=== PATIENT | male | born 1945 | race Caucasian/White ===

== ENCOUNTER → 2016-08-17 | Outpatient (CLI) | payer OTHER, BC ==
[2016-03-06 08:32] VITALS: BP 173/92
[2016-08-17 09:39] LABS: ALANINE AMINOTRANSFERASE 27 Units/L (12-78); ALBUMIN 3.3 g/dL (3.4-5.0); ALKALINE PHOSPHATASE 116 Units/L (46-116); ASPARTATE AMINO TRANSFERASE 20 Units/L (15-37); BLOOD UREA NITROGEN 12 mg/dL (7-18); CARBON DIOXIDE 30.9 mmol/L (21-32); CHLORIDE 105 mmol/L (98-107); COR CA(FOR HYPOALB) 9.6 mg/dL (8.5-10.1); CREATININE 1.27 mg/dL (0.70-1.30); GLUCOSE 104 mg/dL (65-99); SODIUM 142 mmol/L (136-145); eGFR BLACK RACES > 60 (>60); eGFR NON BLACK RACES 59 (>60)
[2016-08-17 10:30] LABS: BASOPHILS % (AUTO) 0.8 % (0.2-1.0); EOSINOPHILS # (AUTO) 0.1 x10^3/uL (0.0-0.2); EOSINOPHILS % (AUTO) 2.4 % (0.9-2.9); LYMPHOCYTES # (AUTO) 1.8 X10^3/uL (1.3-2.9); LYMPHOCYTES % (AUTO) 28.9 % (21.0-51.0); MEAN CORPUSCULAR HEMOGLOBIN 27.2 pg (27.0-34.0); MEAN CORPUSCULAR HGB CONC 32.6 g/dL (33.0-35.0); MEAN CORPUSCULAR VOLUME 83.4 fL (80.0-100.0); MEAN PLATELET VOLUME 7.5 fL (7.4-11.0); MONOCYTES # (AUTO) 0.7 x10^3/uL (0.3-0.8); MONOCYTES % (AUTO) 10.9 % (0.0-13.0); NEUTROPHILS # (AUTO) 3.6 x10^3/uL (2.2-4.8); PLATELET COUNT 219 X10^3/uL (150.0-450.0); RED BLOOD COUNT 5.15 X10^6/uL (4.7-6.0); WHITE BLOOD COUNT 6.3 X10^3/uL (3.6-10.0)
== END ==
LOC: LAB 08:53
PROVIDERS: ATTEND Internal Medicine Medical Oncology
DX: Z01.812 Encounter for preprocedural laboratory examination (principal); C49.9 Malignant neoplasm of connective and soft tissue, unspecified
CPT/HCPCS: 36415; 80053; 85025

== ENCOUNTER → 2016-09-11 | Outpatient (CLI) | payer OTHER, BC ==
[2016-03-06 08:32] VITALS: BP 173/92
[2016-09-11 08:14] LABS: ALANINE AMINOTRANSFERASE 29 Units/L (12-78); ALBUMIN 3.7 g/dL (3.4-5.0); ALKALINE PHOSPHATASE 123 Units/L (46-116); ASPARTATE AMINO TRANSFERASE 26 Units/L (15-37); BLOOD UREA NITROGEN 25 mg/dL (7-18); CALCIUM 9.3 mg/dL (8.5-10.1); CARBON DIOXIDE 29.1 mmol/L (21-32); CHLORIDE 103 mmol/L (98-107); CREATININE 1.54 mg/dL (0.70-1.30); GLUCOSE 102 mg/dL (65-99); HEMOGLOBIN A1C 5.8 % (4.5-6.2); SODIUM 140 mmol/L (136-145); TOTAL PROTEIN 7.9 g/dL (6.4-8.2); eGFR BLACK RACES 57 (>60); eGFR NON BLACK RACES 47 (>60)
[2016-09-11 08:25] LABS: PREALBUMIN 25.3 mg/dL (18-35.7)
== END ==
LOC: LAB 07:21
PROVIDERS: ATTEND Orthopaedic Surgery
DX: M25.562 Pain in left knee (principal); M17.12 Unilateral primary osteoarthritis, left knee; R73.09 Other abnormal glucose
CPT/HCPCS: 36415; 80053; 83036; 84134; 85652; 86140

== ENCOUNTER → 2016-11-02 | Outpatient (CLI) | payer OTHER, BC ==
[2016-03-06 08:32] VITALS: BP 173/92
[2016-11-02 09:03] LABS: BASOPHILS # (AUTO) 0.1 X10^3/uL (0.0-0.1); BASOPHILS % (AUTO) 1.1 % (0.2-1.0); EOSINOPHILS # (AUTO) 0.3 x10^3/uL (0.0-0.2); EOSINOPHILS % (AUTO) 2.4 % (0.9-2.9); HEMATOCRIT 32.3 % (42.0-54.0); HEMOGLOBIN 10.8 g/dL (13.5-18.0); LYMPHOCYTES # (AUTO) 2.6 X10^3/uL (1.3-2.9); LYMPHOCYTES % (AUTO) 24.3 % (21.0-51.0); MEAN CORPUSCULAR HGB CONC 33.5 g/dL (33.0-35.0); MEAN CORPUSCULAR VOLUME 89.6 fL (80.0-100.0); MEAN PLATELET VOLUME 7.7 fL (7.4-11.0); MONOCYTES % (AUTO) 9.2 % (0.0-13.0); NEUTROPHILS # (AUTO) 6.7 x10^3/uL (2.2-4.8); PLATELET COUNT 235 X10^3/uL (150.0-450.0); RED BLOOD COUNT 3.61 X10^6/uL (4.7-6.0); RED CELL DISTRIBUTION WIDTH 16.2 % (11.6-16.5); WHITE BLOOD COUNT 10.7 X10^3/uL (3.6-10.0)
== END ==
LOC: LAB 08:34
PROVIDERS: ATTEND Orthopaedic Surgery
DX: M25.562 Pain in left knee (principal); M17.12 Unilateral primary osteoarthritis, left knee; M89.8X6 Other specified disorders of bone, lower leg
CPT/HCPCS: 36415; 85025

== ENCOUNTER 2017-08-05 06:36 | Day surgery (SDC) | payer OTHER, BC ==
[2017-08-05] MEDS ORDERED: NS 500 ML IV 500 ML IV ONE (07:04)
[2017-08-05] MEDS ORDERED: TETRACAINE 0.5% OPHTH 1 DOSE AFFEYE ONE ×7 (07:30→10:23)
[2017-08-05] MEDS ORDERED: VIGAMOX 0.5% OPHTH 1 DOSE AFFEYE ONE ×3 (07:35→07:45)
[2017-08-05] MEDS ORDERED: VERSED ONE (07:38)
[2017-08-05] MEDS ORDERED: PROLENSA OPHTH 1 DOSE AFFEYE ONE (07:46)
[2017-08-05] MEDS ORDERED: ALPHAGAN-P OPHTH 1 DOSE AFFEYE ONE (07:47)
[2017-08-05] MEDS ORDERED: AK-DILATE 2.5% OPHTH 1 DOSE OP ONE ×3 (07:48→07:50)
[2017-08-05] MEDS ORDERED: CYCLOGYL 1% OPHTH 1 DOSE OP ONE ×3 (07:48→07:50)
[2017-08-05] MEDS ORDERED: MYDRIACIL OPHTH 1 DOSE AFFEYE ONE ×3 (07:48→07:50)
[2017-08-05] MEDS ORDERED: VERSED IVP ONE (09:45)
[2017-08-05] MEDS ORDERED: FENTANYL INJ 100 mcg ONE (09:53)
[2017-08-05] MEDS ORDERED: AK-DILATE 10% OPHTH 1 DOSE AFFEYE ONE (10:03)
[2017-08-05] MEDS ORDERED: XYLOCAINE-MPF 1% IJ ONE ×2 (10:14→10:27)
[2017-08-05] MEDS ORDERED: DUOVISC IO ONE ×2 (10:14→10:27)
[2017-08-05] MEDS ORDERED: ADRENALINE CHL INJ IJ ONE ×2 (10:14→10:27)
[2017-08-05] MEDS ORDERED: BETADINE OPHTH SOLN 5% EACHEYE ONE (10:14)
[2017-08-05] MEDS ORDERED: VIGAMOX 0.5% AFFEYE ONE ×3 (10:16→10:38)
[2017-08-05] MEDS ORDERED: BSS OPHTH (PLAIN) 500 ML with VANCOMYCIN HCL 500 MG VIAL 25 MG, ADRENALINE CHL INJ 1 MG IR ONE ×6 (10:17)
[2017-08-05 10:58] VITALS: BP 119/62
== END 2017-08-05 10:58 | disposition home or self-care (01) ==
LOC: SURG1 06:36
PROVIDERS: ATTEND Ophthalmology
PROC: 08RJ3JZ Replacement of Right Lens with Synthetic Substitute, Percutaneous Approach (ICD-10-PCS; principal; 2017-08-05 09:45)
PROC: 08DJ3ZZ Extraction of Right Lens, Percutaneous Approach (ICD-10-PCS; principal; 2017-08-05 09:45)
DX: H25.11 Age-related nuclear cataract, right eye (principal); H25.011 Cortical age-related cataract, right eye; H52.221 Regular astigmatism, right eye
CPT/HCPCS: 99100; A4217; J0170; J2250; J3010; J3370

== ENCOUNTER 2017-09-02 09:37 | Day surgery (SDC) | payer OTHER, BC ==
[~2017-09-02 09:37] MED LIST: VERSED ONE
[2017-09-02] MEDS ORDERED: NS 500 ML IV 500 ML IV ONE (09:45)
[2017-09-02] MEDS ORDERED: TETRACAINE 0.5% OPHTH 1 DOSE AFFEYE ONE ×4 (09:45→12:10)
[2017-09-02] MEDS ORDERED: VIGAMOX 0.5% OPHTH 1 DOSE AFFEYE ONE ×5 (09:50→12:40)
[2017-09-02] MEDS ORDERED: PROLENSA OPHTH 1 DOSE AFFEYE ONE (10:01)
[2017-09-02] MEDS ORDERED: ALPHAGAN-P OPHTH 1 DOSE AFFEYE ONE (10:02)
[2017-09-02] MEDS ORDERED: AK-DILATE 2.5% OPHTH 1 DOSE OP ONE ×3 (10:03→10:05)
[2017-09-02] MEDS ORDERED: MYDRIACIL OPHTH 1 DOSE AFFEYE ONE ×3 (10:03→10:05)
[2017-09-02] MEDS ORDERED: CYCLOGYL 1% OPHTH 1 DOSE OP ONE ×3 (10:03→10:05)
[2017-09-02] MEDS ORDERED: AK-DILATE 10% OPHTH 1 DOSE AFFEYE ONE (12:08)
[2017-09-02] MEDS ORDERED: BETADINE OPHTH SOLN 5% EACHEYE ONE (12:10)
[2017-09-02] MEDS ORDERED: DUOVISC IO ONE (12:28)
[2017-09-02] MEDS ORDERED: XYLOCAINE-MPF 1% IJ ONE (12:28)
[2017-09-02] MEDS ORDERED: ADRENALINE CHL INJ IJ ONE (12:28)
[2017-09-02] MEDS ORDERED: BSS OPHTH (PLAIN) 500 ML with VANCOMYCIN HCL 500 MG VIAL 25 MG, ADRENALINE CHL INJ 1 MG IR ONE ×3 (12:28)
[2017-09-02 14:15] VITALS: BP 120/71
== END 2017-09-02 13:05 | disposition home or self-care (01) ==
LOC: SURG1 09:37
PROVIDERS: ATTEND Ophthalmology
PROC: 08RK3JZ Replacement of Left Lens with Synthetic Substitute, Percutaneous Approach (ICD-10-PCS; principal; 2017-09-02 15:00)
PROC: 08DK3ZZ Extraction of Left Lens, Percutaneous Approach (ICD-10-PCS; principal; 2017-09-02 15:00)
DX: H25.12 Age-related nuclear cataract, left eye (principal); H25.012 Cortical age-related cataract, left eye; H25.042 Posterior subcapsular polar age-related cataract, left eye; H52.222 Regular astigmatism, left eye
CPT/HCPCS: 99100; A4217; J0170; J2250; J3370

== ENCOUNTER 2020-01-15 11:39 | Inpatient (IN) ==
[2020-01-15 12:20] VITALS: BMI 29.7
[2020-01-15 12:22] LABS: BASOPHILS # (AUTO) 0.1 X10^3/uL (0.0-0.1); BASOPHILS % (AUTO) 0.6 % (0.2-1.0); EOSINOPHILS # (AUTO) 0.1 x10^3/uL (0.0-0.2); EOSINOPHILS % (AUTO) 0.6 % (0.9-2.9); HEMOGLOBIN 12.3 g/dL (13.5-18.0); LYMPHOCYTES # (AUTO) 1.2 X10^3/uL (1.3-2.9); LYMPHOCYTES % (AUTO) 10.9 % (21.0-51.0); MEAN CORPUSCULAR HEMOGLOBIN 29.5 pg (27.0-34.0); MEAN CORPUSCULAR HGB CONC 33.2 g/dL (33.0-35.0); MEAN PLATELET VOLUME 6.7 fL (7.4-11.0); MONOCYTES # (AUTO) 1.1 x10^3/uL (0.3-0.8); MONOCYTES % (AUTO) 9.8 % (0.0-13.0); NEUTROPHILS # (AUTO) 8.7 x10^3/uL (2.2-4.8); NEUTROPHILS % (AUTO) 78.1 % (42.0-75.0); PLATELET COUNT 305 X10^3/uL (150.0-450.0); RED BLOOD COUNT 4.16 X10^6/uL (4.7-6.0); WHITE BLOOD COUNT 11.1 X10^3/uL (3.6-10.0)
[2020-01-15 13:05] LABS: ALANINE AMINOTRANSFERASE 47 Units/L (12-78); ALBUMIN 3.3 g/dL (3.4-5.0); ALKALINE PHOSPHATASE 74 Units/L (46-116); ASPARTATE AMINO TRANSFERASE 36 Units/L (15-37); BLOOD UREA NITROGEN 58 mg/dL (7-18); CALCIUM 8.3 mg/dL (8.5-10.1); CARBON DIOXIDE 21.3 mmol/L (21-32); CHLORIDE 93 mmol/L (98-107); CKMB % 3.7 % (<4); COR CA(FOR HYPOALB) 8.9 mg/dL (8.5-10.1); CREATINE KINASE 387 Units/L (39-308); CREATININE 6.38 mg/dL (0.70-1.30); TOTAL PROTEIN 6.8 g/dL (6.4-8.2); TROPONIN I < 0.02 ng/mL (0-1.5); eGFR NON BLACK RACES 9 (>60)
[2020-01-15 13:14] LABS: CREATINE KINASE MB 14.2 ng/mL (0-4.0); SODIUM 125 mmol/L (136-145)
[2020-01-15 13:45] LABS: BILIRUBIN,URINE NEGATIVE (NEGATIVE); BLOOD/HEMOGLOBIN,URINE NEGATIVE (NEGATIVE); GLUCOSE, URINE NEGATIVE (NEGATIVE); KETONES,URINE NEGATIVE (NEGATIVE); LEUKOCYTE ESTERASE ,URINE NEGATIVE (NEGATIVE); NITRITES,URINE NEGATIVE (NEGATIVE); PROTEIN,URINE NEGATIVE (NEGATIVE); UROBILINOGEN,URINE NORMAL (NORMAL)
[2020-01-15 13:46] LABS: APPEARANCE,URINE CLEAR (CLEAR); COLOR,URINE YELLOW (YELLOW)
--- NOTE | 2020-01-15 13:56 | DR.EXTPAIN ---
HPI Time seen Time Seen by Provider: 01/15/20 11:55 PCP Primary Care Physician: SWETA Complaint/Symptoms Chief Complaint:: PT C/O BEING WEAK AND HAVING MULITPLE SYNCOPAL EPISODES. PT IS NOTED TO HAVE FALLEN X8 TIMES JUST THIS MORNING. PT'S DAUGHTER STATES SHE HAS NOTICED HIM HAVING SLIGHT SHORTNESS OF BREATH WITH EXERTION. PT STATES HE DID TAKE HIS B/P MEDS THIS MORNING, BUT IT IS ONLY HALF A DOSE PER DR SAMS VERBAL ORDERS. COVID-19 Coronavirus risk:travel/contact w/high risk person: No Has patient experienced Coronavirus symptoms: Yes Coronavirus symptoms experienced: Shortness of Breath Source History Provided: Patient and Family Member Mode of arrival Mode of Arrival: Wheelchair Timing Onset of Chief Complaint: 01/12/20 PMH PMH Past Medical History: Yes Past Medical History: Hypertension and Hypothyroidism Past Surgical History: Yes Surgical History: Appendectomy and Ortho Surgery Family History History of Family Medical Conditions: Yes Family Medical History: Diabetes Mellitus, Cancer and Hypertension Social History Does any household member use tobacco: No Alcohol Use: None Do you use any recreational Drugs:: No Lives With: Family Lives Where: Home Travel Risk Coronavirus risk:travel/contact w/high risk person: No Has patient experienced Coronavirus symptoms: Yes Coronavirus symptoms experienced: Shortness of Breath Infectious screening In the last 2 months have you had wt loss of >10#?: NO Have you had fever, night sweats or hemotysis?: No Have you traveled outside the country in the last 6 months?: No Isolation: Standard ROS Review of Systems Constitutional: Malaise and Fatigue Eyes: No Symptoms Reported ENTM: No Symptoms Reported Respiratoy: No Symptoms Reported Cardiovascular: Other Gastrointestinal/Abdominal: No Symptoms Reported Musculoskeletal: Other (multiple falls ) Hematologic/Lymphatic: No Symptoms Reported Endocrine: No Symptoms Reported Psychiatric: No Symptoms Reported PE Vital Signs Vitals: Temperature 97.5 F Pulse Rate 97 Respiratory Rate 20 Blood Pressure [Left Arm] 149/60 Blood Pressure 85/48 O2 Sat by Pulse Oximetry 95 General Limitations: No Limitations Head Head Exam: Normal Inspection, Atraumatic and Normocephalic ENT ENT Exam: Normal Exam and Mucous Membranes Dry Neck Neck Exam: Normal Inspection and Full ROM Respiratory Respiratory Exam: Normal Lung Sounds Bilat Cardiovascular Cardiovascular Exam: +S1 and +S2 Abdominal Exam Abdominal Exam: Normal Inspection, Normal Bowel Sounds and Soft Extremities Extremities Exam: Full ROM Upper Extremities Shoulder Exam: Normal Inspection Arm Exam: Ecchymosis Neuromotor Exam: Normal Exam Lower Extremities Upper Leg Exam: Abrasion Knee Exam: Normal Inspection Neurological Neurological Exam: Alert and Oriented X3 Skin Skin Exam: Dry MDM Differential Diagnosis Differential Diagnosis: Other (hypotension,falls,dehydration) COURSE Treatment Treatment: dehydration, rhabdo ,hyponatremia ,acute renal failure .falls ROR Labs Reviewed Result Diagrams: 01/15/20 12:15 01/15/20 12:15 Laboratory: WBC 11.1 X10^3/uL (3.6-10.0) H 01/15/20 12:15 RBC 4.16 X10^6/uL (4.7-6.0) L 01/15/20 12:15 Hgb 12.3 g/dL (13.5-18.0) L 01/15/20 12:15 Hct 37.0 % (42.0-54.0) L 01/15/20 12:15 MCV 89.0 fL (80.0-100.0) 01/15/20 12:15 MCH 29.5 pg (27.0-34.0) 01/15/20 12:15 MCHC 33.2 g/dL (33.0-35.0) 01/15/20 12:15 RDW 15.0 % (11.6-16.5) 01/15/20 12:15 Plt Count 305 X10^3/uL (150.0-450.0) 01/15/20 12:15 MPV 6.7 fL (7.4-11.0) L 01/15/20 12:15 Neut % (Auto) 78.1 % (42.0-75.0) H 01/15/20 12:15 Lymph % (Auto) 10.9 % (21.0-51.0) L 01/15/20 12:15 [place] % (Auto) 9.8 % (0.0-13.0) 01/15/20 12:15 Eos % (Auto) 0.6 % (0.9-2.9) L 01/15/20 12:15 Baso % (Auto) 0.6 % (0.2-1.0) 01/15/20 12:15 Neut # (Auto) 8.7 x10^3/uL (2.2-4.8) H 01/15/20 12:15 Lymph # (Auto) 1.2 X10^3/uL (1.3-2.9) L 01/15/20 12:15 [place] # (Auto) 1.1 x10^3/uL (0.3-0.8) H 01/15/20 12:15 Eos # (Auto) 0.1 x10^3/uL (0.0-0.2) 01/15/20 12:15 Baso # (Auto) 0.1 X10^3/uL (0.0-0.1) 01/15/20 12:15 Absolute Nucleated RBC 0.0 /100WBC 01/15/20 12:15 Sodium 125 mmol/L (136-145) L* 01/15/20 12:15 Corrected Sodium TNP 01/15/20 12:15 Potassium 3.7 mmol/L (3.5-5.1) 01/15/20 12:15 Chloride 93 mmol/L (98-107) L 01/15/20 12:15 Carbon Dioxide 21.3 mmol/L (21-32) 01/15/20 12:15 BUN 58 mg/dL (7-18) H 01/15/20 12:15 Creatinine 6.38 mg/dL (0.70-1.30) H 01/15/20 12:15 Est GFR (MDRD) Af Amer 11 (>60) L 01/15/20 12:15 Est GFR (MDRD) Non-Af 9 (>60) L 01/15/20 12:15 Glucose 101 mg/dL (65-99) H 01/15/20 12:15 Calcium 8.3 mg/dL (8.5-10.1) L 01/15/20 12:15 Corrected Calcium 8.9 mg/dL (8.5-10.1) 01/15/20 12:15 Total Bilirubin 0.40 mg/dL (0.2-1.0) 01/15/20 12:15 AST 36 Units/L (15-37) 01/15/20 12:15 ALT 47 Units/L (12-78) 01/15/20 12:15 Alkaline Phosphatase 74 Units/L (46-116) 01/15/20 12:15 Creatine Kinase 387 Units/L (39-308) H 01/15/20 12:15 CK-MB (CK-2) 14.2 ng/mL (0-4.0) H* 01/15/20 12:15 CK/CKMB % Calc 3.7 % (<4) 01/15/20 12:15 Troponin I < 0.02 ng/mL (0-1.5) 01/15/20 12:15 Total Protein 6.8 g/dL (6.4-8.2) 01/15/20 12:15 Albumin 3.3 g/dL (3.4-5.0) L 01/15/20 12:15 Globulin 3.5 g/dL (2.5-4.5) 01/15/20 12:15 Albumin/Globulin Ratio 0.9 Ratio (1.1-2.1) L 01/15/20 12:15 Specimen Type Clean catch urine 01/15/20 13:20 Urine Color Yellow (YELLOW) 01/15/20 13:20 Urine Appearance Clear (CLEAR) 01/15/20 13:20 Urine pH 5.0 (5.0 - 8.0) 01/15/20 13:20 Ur Specific [place] 1.015 (1.000-1.030) 01/15/20 13:20 Urine Protein Negative (NEGATIVE) 01/15/20 13:20 Urine Glucose (UA) Negative (NEGATIVE) 01/15/20 13:20 Urine Ketones Negative (NEGATIVE) 01/15/20 13:20 Urine Occult Blood Negative (NEGATIVE) 01/15/20 13:20 Urine Nitrite Negative (NEGATIVE) 01/15/20 13:20 Urine Bilirubin Negative (NEGATIVE) 01/15/20 13:20 Urine Urobilinogen Normal (NORMAL) 01/15/20 13:20 Ur Leukocyte Esterase Negative (NEGATIVE) 01/15/20 13:20 Other Results Comments: concentrated urine, elevated CPK, elevated bun/cr ,low sodium Opioid Opioid Risk Tool Age (Giorgio box if 16-45): No History of Preadolescent Sexual Abuse: No Total: 0 Total Score Risk Category: Low Risk Copyright: [place] CHEW predicting aberrant behaviors
[2020-01-15] MEDS: NS 1000 ML 1,000 ML IV SCH ×2 (15:25→21:20)
--- NOTE | 2020-01-15 19:10 | CT ---
HISTORY:Weakness, syncopal episodesStudy: CT brain without contrastComparison:NoneTechnique:Multiple axial images of the brain were obtained without administration of IV contrast. Dose reduction techniques including Automated Exposure Control (AEC) and adjustment of mA and kV were utilized.Findings:There is cerebral volume loss with nonspecific white matter hypoattenuation suggestive of chronic microvascular ischemic changes. No evidence of acute hemorrhage, midline shift, mass effect or abnormal extra-axial fluid collection. The ventricular system is symmetric and nondilated.The soft tissues and osseous structures are unremarkable. The visualized paranasal sinuses are clear.IMPRESSION:1. Cerebral volume loss and nonspecific white matter changes as described without acute intracranial abnormality.Electronically signed by: PATITO MON (Jan 15, 2020 19:09:48)
[2020-01-16] MEDS: GENTAMICIN TOPICAL OINT TOP SCH ×3 (00:22→20:43)
[2020-01-16] MEDS: NS 1000 ML 1,000 ML IV SCH ×3 (05:09→22:10)
[2020-01-16 06:11] LABS: BASOPHILS % (AUTO) 0.6 % (0.2-1.0); EOSINOPHILS # (AUTO) 0.1 x10^3/uL (0.0-0.2); EOSINOPHILS % (AUTO) 1.2 % (0.9-2.9); HEMATOCRIT 38.2 % (42.0-54.0); HEMOGLOBIN 12.9 g/dL (13.5-18.0); LYMPHOCYTES # (AUTO) 1.5 X10^3/uL (1.3-2.9); LYMPHOCYTES % (AUTO) 18.6 % (21.0-51.0); MEAN CORPUSCULAR HEMOGLOBIN 29.9 pg (27.0-34.0); MEAN CORPUSCULAR HGB CONC 33.7 g/dL (33.0-35.0); MEAN CORPUSCULAR VOLUME 88.5 fL (80.0-100.0); MEAN PLATELET VOLUME 6.8 fL (7.4-11.0); MONOCYTES # (AUTO) 0.9 x10^3/uL (0.3-0.8); MONOCYTES % (AUTO) 10.9 % (0.0-13.0); NEUTROPHILS # (AUTO) 5.6 x10^3/uL (2.2-4.8); NEUTROPHILS % (AUTO) 68.7 % (42.0-75.0); PLATELET COUNT 299 X10^3/uL (150.0-450.0); RED BLOOD COUNT 4.32 X10^6/uL (4.7-6.0); RED CELL DISTRIBUTION WIDTH 15.1 % (11.6-16.5); WHITE BLOOD COUNT 8.1 X10^3/uL (3.6-10.0)
[2020-01-16 06:31] LABS: ALANINE AMINOTRANSFERASE 45 Units/L (12-78); ALBUMIN 3.1 g/dL (3.4-5.0); ALKALINE PHOSPHATASE 73 Units/L (46-116); ASPARTATE AMINO TRANSFERASE 32 Units/L (15-37); BLOOD UREA NITROGEN 49 mg/dL (7-18); CARBON DIOXIDE 23.3 mmol/L (21-32); CHLORIDE 99 mmol/L (98-107); COR CA(FOR HYPOALB) 8.7 mg/dL (8.5-10.1); CREATININE 4.09 mg/dL (0.70-1.30); SODIUM 133 mmol/L (136-145); TOTAL PROTEIN 6.7 g/dL (6.4-8.2); eGFR NON BLACK RACES 15 (>60)
[2020-01-16 11:15] LABS: LACTIC ACID 1.3 mmol/L (0.4-2.0)
[2020-01-16 11:39] LABS: CREATINE KINASE 218 Units/L (39-308); TROPONIN I < 0.02 ng/mL (0-1.5)
[2020-01-16 11:47] LABS: CREATINE KINASE MB 8.7 ng/mL (0-4.0)
--- NOTE | 2020-01-16 12:02 | RAD ---
HISTORY:SyncopeStudy: Single view chestComparison:06/02/2019Findings:There is chronic elevation of the right hemidiaphragm. No infiltrate, effusion, or pneumothorax identified .Cardiac and mediastinal contours are within normal limits .The soft tissues are intact.Partially visualized fusion hardware in the cervical spine.IMPRESSION:1. No acute cardiopulmonary abnormality.Electronically signed by: PATITO MON (Jan 16, 2020 12:00:21)
--- NOTE | 2020-01-16 12:41 | DR.H&P ---
H&P - History & Physical for Day of: H&P Date: 01/15/20 - Chief Complaint Chief Complaint: syncope, weakness - History of Present Illness History of Present Illness: PT IS 74 WM ER ADMISSION WITH CO MULTPLE SYNCOPAL EPISODES AND RECENT FALLS DUE TO WEAKNESS AND DIZZINESS. PT HAS PMH OF HTN, OA. PT DENIES ANY CARDIAC HISTORY, NO CO CHEST PAIN, NO HX OF DM. PT HAS HYPONATREMIA ON ADMISSION AND ACUTE RENAL FAILURE. PT ADMITTED FOR TREATMENT OF ACUTE ILLNESS. - Past Medical History Past Medical History: Hypertension, Hypothyroidism Additional Medical History: Peripheral Neuropathy, Chronic Constipation, Back pain, Colon Cancer - Past Surgical History Surgical History: Appendectomy, Ortho Surgery Additional Surgical History: 7 Spinal Surgeries, Hernia Repair 2013, Surgery for Colon Cancer - Family History Family Medical History: Diabetes Mellitus, Cancer, Hypertension - Social History Does any household member use tobacco: No Alcohol Use: None Drug Use: None Prescription drug monitoring program results: PDMP reviewed and no concerns identified - Medications Home Medications: morphine Adverse Reaction (Verified 01/15/20 12:20) nifedipine Adverse Reaction (Verified 01/15/20 12:20) MUSCLE RELAXERS Adverse Reaction (Uncoded 01/15/20 12:20) CONTINUE taking the following medications duloxetine 60 mg PO DAILY 01/15/20 [History] gabapentin [Neurontin] 800 mg PO TID 01/15/20 [History] gentamicin 1 applic TOPICAL BID 01/15/20 [History] levothyroxine 75 mcg PO DAILY 01/15/20 [History] lisinopril 10 mg PO DAILY 01/15/20 [History] phentermine 37.5 mg PO DAILY 01/15/20 [History] sulfamethoxazole-trimethoprim 1 tab PO BID 01/15/20 [History] tamsulosin 0.4 mg PO HS 01/15/20 [History] triamterene-hydrochlorothiazid 1 cap PO DAILY 01/15/20 [History] - Review of Systems Constitutional: Weakness Eyes: No Symptoms Reported ENT: No Symptoms Reported Respiratory: SOB with Excertion Cardiovascular: denies: Chest Pain Genitourinary: No Symptoms Reported Musculoskeletal: Back Pain Skin: No Symptoms Reported Neurological: Weakness, Other (DIZZINESS AND SYNCOPE) - Physical Exam Vital Signs: Temperature 98.0 F Pulse Rate [Left Radial] 86 Pulse Rate 97 Respiratory Rate 18 Blood Pressure [Left Arm] 115/55 Blood Pressure 85/48 O2 Sat by Pulse Oximetry 96 Oriented: Normal Eyes: Normal Ear: Normal Nose: Normal Throat: Dry Respiratory: RLL Diminished, LLL Diminished Cardiovascular: Normal : Normal Auscultation: Bowel Sounds: Normal Palpation: Normal Tenderness: Normal Skin: Decreased Turgur Musculoskeletal: Back:Thoracic, Back:Lumbar Psychiatric: Normal Mood Description: Calm Speech Pattern: Clear, Appropriate - Assessment/Plan (1) Acute renal failure Status: Acute Plan: ADMIT, CT HEAD ON ADMISSION. EKG, CE AND CXR. VERIFY HOME MEDICATIONS, IV HYDRATION WITH NS, STRICT I &OS. BP AND CARDIAC MONITORING, PT EVALUATION. HOLD DIURETICS, AM LABS. CAROTID ARTERY US (2) Syncope Status: Acute (3) Hyponatremia Status: Acute (4) Essential hypertension Status: Chronic (5) DOMINIC (generalized anxiety disorder) Status: Chronic (6) GERD (gastroesophageal reflux disease) Qualifiers: Esophagitis presence: esophagitis presence not specified Qualified Code(s): K21.9 - Gastro-esophageal reflux disease without esophagitis Status: Chronic (7) Hypothyroid Qualifiers: Hypothyroidism type: unspecified Qualified Code(s): E03.9 - Hypothyroidism, unspecified Status: Chronic - Allergies Allergies/Adverse Reactions: Allergies Allergy/AdvReac Type Severity Reaction Status Date / Time morphine AdvReac Verified 01/15/20 12:20 nifedipine AdvReac Verified 01/15/20 12:20 MUSCLE RELAXERS AdvReac Uncoded 01/15/20 12:20
--- NOTE | 2020-01-16 12:48 | PCM.PROG ---
Progress Note - Progress Note for Day of Date of Exam: 01/16/20 - Subjective Subjective: PT IS 74 WM ER ADMISSION WITH CO SYNCOPE AND GENERALZIED WEAKNESS WITH SOB ON EXERTION. PT HAD CT HEAD ON ADMISSION WITHOUT ACUTE CVA. PT WAS HYPONATREMIC WITH NA AT 125, 133 THIS AM. PT HAD ACUTE RENAL FAILURE WITH BUN 49 AND CREAT 4.09, IMPROVED SINCE ADMISSION WITH IV HYDRATION. PT HAS CAROTID US FOR FRIDAY. WILL ADD AM FLP. PLAN TO CONTINUE ENCOURAGE ORAL HYDRATION, ADD BC AND UC. RESTARTED LOWER DOSE GABAPENTIN DUE TO RENAL DISEASE, CONTINUE TO MONITOR BP - Past Medical Family Social History Past Med/Fam/Surg Hx: No changes since H&P Allergies: Allergies morphine Adverse Reaction (Verified 01/15/20 12:20) nifedipine Adverse Reaction (Verified 01/15/20 12:20) MUSCLE RELAXERS Adverse Reaction (Uncoded 01/15/20 12:20) - Review of Systems ROS: No change since H&P - Vital Signs and I&O's Vital Signs: Temperature 98.0 F Pulse Rate [Left Radial] 86 Pulse Rate 97 Respiratory Rate 18 Blood Pressure [Left Arm] 115/55 Blood Pressure 85/48 O2 Sat by Pulse Oximetry 96 Intake and Output: Intake & Output 01/14/20 01/15/20 01/16/20 01/17/20 11:59 11:59 11:59 11:59 Intake Total 1818 / 1818 Output Total 2450 / 2450 Balance -632 / -632 - Physical Exam Oriented: Normal Eyes: Normal Ear: Normal Nose: Normal Throat: Dry Respiratory: Normal Cardiovascular: Normal : Normal Auscultation: Bowel Sounds: Normal Tenderness: Normal Skin: Decreased Turgur Musculoskeletal: Back:Thoracic, Back:Lumbar Psychiatric: Normal Mood Description: Calm Speech Pattern: Clear, Appropriate - Laboratory and Diagnostics Result Diagrams: 01/16/20 05:25 01/16/20 05:25 Labs: Laboratory WBC 8.1 X10^3/uL (3.6-10.0) 01/16/20 05:25 RBC 4.32 X10^6/uL (4.7-6.0) L 01/16/20 05:25 Hgb 12.9 g/dL (13.5-18.0) L 01/16/20 05:25 Hct 38.2 % (42.0-54.0) L 01/16/20 05:25 MCV 88.5 fL (80.0-100.0) 01/16/20 05:25 MCH 29.9 pg (27.0-34.0) 01/16/20 05:25 MCHC 33.7 g/dL (33.0-35.0) 01/16/20 05:25 RDW 15.1 % (11.6-16.5) 01/16/20 05:25 Plt Count 299 X10^3/uL (150.0-450.0) 01/16/20 05:25 MPV 6.8 fL (7.4-11.0) L 01/16/20 05:25 Neut % (Auto) 68.7 % (42.0-75.0) 01/16/20 05:25 Lymph % (Auto) 18.6 % (21.0-51.0) L 01/16/20 05:25 [place] % (Auto) 10.9 % (0.0-13.0) 01/16/20 05:25 Eos % (Auto) 1.2 % (0.9-2.9) 01/16/20 05:25 Baso % (Auto) 0.6 % (0.2-1.0) 01/16/20 05:25 Neut # (Auto) 5.6 x10^3/uL (2.2-4.8) H 01/16/20 05:25 Lymph # (Auto) 1.5 X10^3/uL (1.3-2.9) 01/16/20 05:25 [place] # (Auto) 0.9 x10^3/uL (0.3-0.8) H 01/16/20 05:25 Eos # (Auto) 0.1 x10^3/uL (0.0-0.2) 01/16/20 05:25 Baso # (Auto) 0.0 X10^3/uL (0.0-0.1) 01/16/20 05:25 Absolute Nucleated RBC 0.0 /100WBC 01/16/20 05:25 Sodium 133 mmol/L (136-145) L 01/16/20 05:25 Corrected Sodium TNP 01/16/20 05:25 Potassium 3.7 mmol/L (3.5-5.1) 01/16/20 05:25 Chloride 99 mmol/L (98-107) 01/16/20 05:25 Carbon Dioxide 23.3 mmol/L (21-32) 01/16/20 05:25 BUN 49 mg/dL (7-18) H 01/16/20 05:25 Creatinine 4.09 mg/dL (0.70-1.30) H 01/16/20 05:25 Est GFR (MDRD) Af Amer 18 (>60) L 01/16/20 05:25 Est GFR (MDRD) Non-Af 15 (>60) L 01/16/20 05:25 Glucose 89 mg/dL (65-99) 01/16/20 05:25 POC Glucose (mg/dL) 68 mg/dL (65-99) 01/16/20 11:42 Lactic Acid 1.3 mmol/L (0.4-2.0) 01/16/20 10:40 Calcium 8.0 mg/dL (8.5-10.1) L 01/16/20 05:25 Corrected Calcium 8.7 mg/dL (8.5-10.1) 01/16/20 05:25 Total Bilirubin 0.50 mg/dL (0.2-1.0) 01/16/20 05:25 AST 32 Units/L (15-37) 01/16/20 05:25 ALT 45 Units/L (12-78) 01/16/20 05:25 Alkaline Phosphatase 73 Units/L (46-116) 01/16/20 05:25 Creatine Kinase 218 Units/L (39-308) 01/16/20 10:40 CK-MB (CK-2) 8.7 ng/mL (0-4.0) H* 01/16/20 10:40 CK/CKMB % Calc 4.0 % (<4) 01/16/20 10:40 Troponin I < 0.02 ng/mL (0-1.5) 01/16/20 10:40 Total Protein 6.7 g/dL (6.4-8.2) 01/16/20 05:25 Albumin 3.1 g/dL (3.4-5.0) L 01/16/20 05:25 Globulin 3.6 g/dL (2.5-4.5) 01/16/20 05:25 Albumin/Globulin Ratio 0.9 Ratio (1.1-2.1) L 01/16/20 05:25 Specimen Type Clean catch urine 01/15/20 13:20 Urine Color Yellow (YELLOW) 01/15/20 13:20 Urine Appearance Clear (CLEAR) 01/15/20 13:20 Urine pH 5.0 (5.0 - 8.0) 01/15/20 13:20 Ur Specific [place] 1.015 (1.000-1.030) 01/15/20 13:20 Urine Protein Negative (NEGATIVE) 01/15/20 13:20 Urine Glucose (UA) Negative (NEGATIVE) 01/15/20 13:20 Urine Ketones Negative (NEGATIVE) 01/15/20 13:20 Urine Occult Blood Negative (NEGATIVE) 01/15/20 13:20 Urine Nitrite Negative (NEGATIVE) 01/15/20 13:20 Urine Bilirubin Negative (NEGATIVE) 01/15/20 13:20 Urine Urobilinogen Normal (NORMAL) 01/15/20 13:20 Ur Leukocyte Esterase Negative (NEGATIVE) 01/15/20 13:20 - Plan (1) Acute renal failure Status: Acute Plan: CT HEAD ON ADMISSION. EKG, CE AND CXR. VERIFY HOME MEDICATIONS, IV HYDRATION WITH NS, STRICT I &OS. BP AND CARDIAC MONITORING, PT EVALUATION. HOLD DIURETICS, AM LABS. CAROTID ARTERY US, FLP (2) Syncope Status: Acute (3) Hyponatremia Status: Acute (4) Essential hypertension Status: Chronic (5) DOMINIC (generalized anxiety disorder) Status: Chronic (6) GERD (gastroesophageal reflux disease) Status: Chronic Qualifiers: Esophagitis presence: esophagitis presence not specified Qualified Code(s): K21.9 - Gastro-esophageal reflux disease without esophagitis (7) Hypothyroid Status: Chronic Qualifiers: Hypothyroidism type: unspecified Qualified Code(s): E03.9 - Hypothyroidism, unspecified
[2020-01-16] MEDS: NEURONTIN CAP 300 MG PO SCH ×2 (14:36→21:07)
[2020-01-16 16:47] LABS: CKMB % 3.9 % (<4); CREATINE KINASE 166 Units/L (39-308); TROPONIN I < 0.02 ng/mL (0-1.5)
[2020-01-16 16:54] LABS: CREATINE KINASE MB 6.4 ng/mL (0-4.0)
[2020-01-16] MEDS: FLOMAX PO SCH (20:43)
[2020-01-16 23:02] LABS: CKMB % 3.5 % (<4); CREATINE KINASE 136 Units/L (39-308); TROPONIN I < 0.02 ng/mL (0-1.5)
[2020-01-16 23:11] LABS: CREATINE KINASE MB 4.7 ng/mL (0-4.0)
[2020-01-17] MEDS: NEURONTIN CAP 300 MG PO SCH ×3 (05:29→21:45)
[2020-01-17] MEDS: NS 1000 ML 1,000 ML IV SCH ×3 (05:30→21:45)
[2020-01-17 06:31] LABS: ALANINE AMINOTRANSFERASE 39 Units/L (12-78); ALBUMIN 2.8 g/dL (3.4-5.0); ALKALINE PHOSPHATASE 73 Units/L (46-116); ASPARTATE AMINO TRANSFERASE 30 Units/L (15-37); BLOOD UREA NITROGEN 30 mg/dL (7-18); CALCIUM 8.1 mg/dL (8.5-10.1); CARBON DIOXIDE 26.2 mmol/L (21-32); CHLORIDE 105 mmol/L (98-107); CHOLESTEROL 174 mg/dL (0-200); COR CA(FOR HYPOALB) 9.1 mg/dL (8.5-10.1); CREATININE 2.12 mg/dL (0.70-1.30); HDL CHOLESTEROL 43 mg/dL (40-60); SODIUM 139 mmol/L (136-145); TOTAL PROTEIN 6.3 g/dL (6.4-8.2); TRIGLYCERIDES 106 mg/dL (0-150); eGFR NON BLACK RACES 32 (>60)
[2020-01-17 06:42] LABS: BASOPHILS # (AUTO) 0.1 X10^3/uL (0.0-0.1); BASOPHILS % (AUTO) 0.9 % (0.2-1.0); EOSINOPHILS # (AUTO) 0.1 x10^3/uL (0.0-0.2); EOSINOPHILS % (AUTO) 1.5 % (0.9-2.9); HEMATOCRIT 38.2 % (42.0-54.0); HEMOGLOBIN 12.7 g/dL (13.5-18.0); LYMPHOCYTES # (AUTO) 2.1 X10^3/uL (1.3-2.9); LYMPHOCYTES % (AUTO) 26.4 % (21.0-51.0); MEAN CORPUSCULAR HEMOGLOBIN 29.9 pg (27.0-34.0); MEAN CORPUSCULAR HGB CONC 33.3 g/dL (33.0-35.0); MEAN CORPUSCULAR VOLUME 89.9 fL (80.0-100.0); MEAN PLATELET VOLUME 7.4 fL (7.4-11.0); MONOCYTES # (AUTO) 1.1 x10^3/uL (0.3-0.8); MONOCYTES % (AUTO) 13.6 % (0.0-13.0); NEUTROPHILS # (AUTO) 4.5 x10^3/uL (2.2-4.8); NEUTROPHILS % (AUTO) 57.6 % (42.0-75.0); PLATELET COUNT 263 X10^3/uL (150.0-450.0); RED BLOOD COUNT 4.25 X10^6/uL (4.7-6.0); RED CELL DISTRIBUTION WIDTH 14.8 % (11.6-16.5); WHITE BLOOD COUNT 7.8 X10^3/uL (3.6-10.0)
[2020-01-17 07:10] LABS: PLATELET MORPHOLOGY COMMENT NORMAL (NORMAL)
[2020-01-17] MEDS: CYMBALTA PO SCH (09:02)
[2020-01-17] MEDS: GENTAMICIN TOPICAL OINT TOP SCH ×2 (09:03→20:34)
[2020-01-17] MEDS: SYNTHROID 75 mcg TAB PO SCH (09:03)
--- NOTE | 2020-01-17 10:59 | VAS ---
HISTORY: Concern for carotid artery stenosis. Syncope. Carotid atherosclerosis.EXAM: BILATERAL DOPPLER CAROTID ULTRASOUND EXAMTechnique: Multiple vaughan scale and color flow Doppler images of the right and left carotid arterial system were obtained. The vertebral arterial system was evaluated as well.Findings:Nonocclusive color flow Doppler is seen throughout the right and left carotid arterial system. There elevated velocities in the right ICA in the 50-69 percent stenosis range. There is moderate atherosclerosis and hard atherosclerotic plaque formation of the bilateral carotid bulbs and ICAs with associated intimal thickening but [without] evidence for high-grade stenosis (>70%) or occlusion of the carotid arteries. The right and left vertebral artery demonstrate antegrade flow.IMPRESSION:Elevated velocities in the right ICA in the 50-69% stenosis range.Moderate atherosclerosis and hard atherosclerotic plaque formation of the bilateral carotid bulbs and in both ICAs with moderate associated carotid intimal thickening but without evidence for any additional high-grade stenosis or occlusion of the carotid arteries, based on Doppler velocity criteria.Appropriate, antegrade, vertebral arterial flow.Peak right ICA velocity: 138 centimeter/seconds.Peak right CCA velocity: 95 centimeter/seconds.Peak left ICA velocity: 95 centimeter/seconds.Peak left CCA velocity: 121 centimeter/seconds.Right ICA to CCA ratio: 1.6.Left ICA to CCA ratio: 1.1.Electronically signed by: MESHA DIAMOND III (Jan 17, 2020 10:58:49)
[2020-01-17] MEDS: LOVENOX INJ 40 MG SYR SC SCH (14:05)
[2020-01-17] MEDS: FLOMAX PO SCH (20:34)
[2020-01-18] MEDS: NS 1000 ML 1,000 ML IV SCH ×2 (06:32→08:54)
[2020-01-18] MEDS: NEURONTIN CAP 300 MG PO SCH (06:32)
[2020-01-18 07:07] LABS: ALANINE AMINOTRANSFERASE 36 Units/L (12-78); ALBUMIN 2.4 g/dL (3.4-5.0); ALKALINE PHOSPHATASE 70 Units/L (46-116); ASPARTATE AMINO TRANSFERASE 21 Units/L (15-37); BLOOD UREA NITROGEN 19 mg/dL (7-18); CALCIUM 7.7 mg/dL (8.5-10.1); CARBON DIOXIDE 24.9 mmol/L (21-32); CHLORIDE 107 mmol/L (98-107); COR NA(FOR HYPERGLY) 139 mmol/L (136-145); SODIUM 138 mmol/L (136-145); TOTAL PROTEIN 5.6 g/dL (6.4-8.2); eGFR NON BLACK RACES 52 (>60)
[2020-01-18 07:21] LABS: BASOPHILS % (AUTO) 0.6 % (0.2-1.0); EOSINOPHILS # (AUTO) 0.1 x10^3/uL (0.0-0.2); EOSINOPHILS % (AUTO) 1.6 % (0.9-2.9); HEMOGLOBIN 11.2 g/dL (13.5-18.0); LYMPHOCYTES % (AUTO) 19.1 % (21.0-51.0); MEAN CORPUSCULAR HEMOGLOBIN 29.5 pg (27.0-34.0); MEAN CORPUSCULAR VOLUME 89.1 fL (80.0-100.0); MEAN PLATELET VOLUME 6.4 fL (7.4-11.0); MONOCYTES # (AUTO) 0.8 x10^3/uL (0.3-0.8); NEUTROPHILS # (AUTO) 3.6 x10^3/uL (2.2-4.8); NEUTROPHILS % (AUTO) 64.7 % (42.0-75.0); PLATELET COUNT 238 X10^3/uL (150.0-450.0); RED BLOOD COUNT 3.82 X10^6/uL (4.7-6.0); RED CELL DISTRIBUTION WIDTH 15.2 % (11.6-16.5); WHITE BLOOD COUNT 5.5 X10^3/uL (3.6-10.0)
[2020-01-18] MEDS: CYMBALTA PO SCH (08:52)
[2020-01-18] MEDS: SYNTHROID 75 mcg TAB PO SCH (08:53)
[2020-01-18] MEDS: GENTAMICIN TOPICAL OINT TOP SCH (08:53)
[2020-01-18] MEDS: LOVENOX INJ 40 MG SYR SC SCH ×2 (08:54→09:18)
--- NOTE | 2020-01-18 10:52 | PCM.PROG ---
Progress Note - Progress Note for Day of Date of Exam: 01/17/20 - Subjective Subjective: WAS ADMITTED ON 01/15/20 DUE TO MULTIPLE SYNCOPAL EPISODES AND RECENT FALLS DUE TO WEAKNESS AND DIZZINESS. ADMISSION LABS REVEALED HYPONATREMIA, DEHYDRATION, AND ACUTE RENAL FAILURE. SODIUM ON ADMISSION WAS 125, BUN 58, CREATININE 6.38. PATIENT HAS A HISTORY OF HTN, BUT REPORTS THAT HIS BLOOD PRESSURE HAS BEEN LOW AT HOME. HE DENIES CHEST PAIN OR SHORTNESS OF BREATH. TODAY, HE IS ALERT AND ORIENTED, LYING IN BED ON MORNING ROUNDS. HE CONTINUES WITH LEG WEAKNESS, BUT REPORTS IMPROVEMENT IN SYMPTOMS SINCE ADMISSION. HIS VITALS TODAY ARE 98.9-86-20-99%-183/90. LABS WERE OBTAINED. ABNORMAL LAB VALUES INCLUDE THE FOLLOWING: RBC 4.25, HGB 12.7, HCT 38.2, BUN 30, CREATININE 2.12, CALCIUM 8.1, TOTAL PROTEIN 6.3, ALBUMIN 2.8, LDL 110. URINE AND BLOOD CULTURES ARE PENDING. A CAROTID DOPPLER STUDY WAS DONE THIS MORNING AND REVEALED: Elevated velocities in the right ICA in the 50-69% stenosis range. Moderate atherosclerosis and hard atherosclerotic plaque formation of the bilateral carotid bulbs and in both ICAs with moderate associated carotid intimal thickening but without evidence for any additional high-grade stenosis or occlusion of the carotid arteries, based on Doppler velocity criteria. HE IS CURRENTLY RECEIVING NORMAL SALINE AT 125ML/HR, LOVENOX 40MG SC DAILY, CYMBALTA 60MG PO DAILY, NEURONTIN 300MG PO TID, GENTAMICIN BID, SYNTHROID 75MCG PO DAILY, AND FLOMAX 0.4MG PO HS. WE WILL CONTINUE WITH IV FLUIDS AND CURRENT PLAN OF CARE TODAY. OTHERWISE, WE PLAN TO FOLLOW UP WITH AM LABS AND CONTINUE TO MONITOR. - Past Medical Family Social History Past Med/Fam/Surg Hx: No changes since H&P Allergies: Allergies morphine Adverse Reaction (Verified 01/15/20 12:20) nifedipine Adverse Reaction (Verified 01/15/20 12:20) MUSCLE RELAXERS Adverse Reaction (Uncoded 01/15/20 12:20) - Review of Systems ROS: No change since H&P - Vital Signs and I&O's Vital Signs: Temperature 98.4 F Pulse Rate [Left Radial] 84 Pulse Rate 97 Respiratory Rate 20 Blood Pressure [Left Arm] 153/72 Blood Pressure 85/48 O2 Sat by Pulse Oximetry 97 Intake and Output: Intake & Output 01/15/20 01/16/20 01/17/20 01/18/20 11:59 11:59 11:59 11:59 Intake Total 1818 / 1818 5289 / 5289 6602 / 6602 Output Total 2450 / 2450 3850 / 3850 2900 / 2900 Balance -632 / -632 1439 / 1439 3702 / 3702 - Physical Exam Oriented: Normal Eyes: Normal Ear: Normal Nose: Normal Throat: Dry Respiratory: Normal Cardiovascular: Normal : Normal Auscultation: Bowel Sounds: Normal Palpation: Normal Tenderness: Normal Skin: Decreased Turgur Musculoskeletal: Back:Thoracic, Back:Lumbar Psychiatric: Normal Mood Description: Calm Speech Pattern: Clear, Appropriate - Laboratory and Diagnostics Result Diagrams: 01/18/20 06:03 01/18/20 06:03 Labs: 01/16/20 22:34 Urine,Clean Catch Urine Culture - Preliminary Laboratory WBC 5.5 X10^3/uL (3.6-10.0) 01/18/20 06:03 RBC 3.82 X10^6/uL (4.7-6.0) L 01/18/20 06:03 Hgb 11.2 g/dL (13.5-18.0) L 01/18/20 06:03 Hct 34.0 % (42.0-54.0) L 01/18/20 06:03 MCV 89.1 fL (80.0-100.0) 01/18/20 06:03 MCH 29.5 pg (27.0-34.0) 01/18/20 06:03 MCHC 33.0 g/dL (33.0-35.0) 01/18/20 06:03 RDW 15.2 % (11.6-16.5) 01/18/20 06:03 Plt Count 238 X10^3/uL (150.0-450.0) 01/18/20 06:03 Plt Count Comment Adequate (ADEQUATE) 01/17/20 05:15 MPV 6.4 fL (7.4-11.0) L 01/18/20 06:03 Neut % (Auto) 64.7 % (42.0-75.0) 01/18/20 06:03 Lymph % (Auto) 19.1 % (21.0-51.0) L 01/18/20 06:03 [place] % (Auto) 14.0 % (0.0-13.0) H 01/18/20 06:03 Eos % (Auto) 1.6 % (0.9-2.9) 01/18/20 06:03 Baso % (Auto) 0.6 % (0.2-1.0) 01/18/20 06:03 Neut # (Auto) 3.6 x10^3/uL (2.2-4.8) 01/18/20 06:03 Lymph # (Auto) 1.0 X10^3/uL (1.3-2.9) L 01/18/20 06:03 [place] # (Auto) 0.8 x10^3/uL (0.3-0.8) 01/18/20 06:03 Eos # (Auto) 0.1 x10^3/uL (0.0-0.2) 01/18/20 06:03 Baso # (Auto) 0.0 X10^3/uL (0.0-0.1) 01/18/20 06:03 Absolute Nucleated RBC 0.1 /100WBC 01/18/20 06:03 Plt Clumps, EDTA Rare 01/17/20 05:15 Plt Morphology Comment Normal (NORMAL) 01/17/20 05:15 RBC Morphology Normal (NORMAL) 01/17/20 05:15 Sodium 138 mmol/L (136-145) 01/18/20 06:03 Corrected Sodium 139 mmol/L (136-145) 01/18/20 06:03 Potassium 3.7 mmol/L (3.5-5.1) 01/18/20 06:03 Chloride 107 mmol/L (98-107) 01/18/20 06:03 Carbon Dioxide 24.9 mmol/L (21-32) 01/18/20 06:03 BUN 19 mg/dL (7-18) H 01/18/20 06:03 Creatinine 1.40 mg/dL (0.70-1.30) H 01/18/20 06:03 Est GFR (MDRD) Af Amer > 60 (>60) 01/18/20 06:03 Est GFR (MDRD) Non-Af 52 (>60) L 01/18/20 06:03 Glucose 122 mg/dL (65-99) H 01/18/20 06:03 POC Glucose (mg/dL) 127 mg/dL (65-99) H 01/18/20 05:17 Lactic Acid 1.3 mmol/L (0.4-2.0) 01/16/20 10:40 Calcium 7.7 mg/dL (8.5-10.1) L 01/18/20 06:03 Corrected Calcium 9.0 mg/dL (8.5-10.1) 01/18/20 06:03 Total Bilirubin 0.30 mg/dL (0.2-1.0) 01/18/20 06:03 AST 21 Units/L (15-37) 01/18/20 06:03 ALT 36 Units/L (12-78) 01/18/20 06:03 Alkaline Phosphatase 70 Units/L (46-116) 01/18/20 06:03 Creatine Kinase 136 Units/L (39-308) 01/16/20 22:17 CK-MB (CK-2) 4.7 ng/mL (0-4.0) H* 01/16/20 22:17 CK/CKMB % Calc 3.5 % (<4) 01/16/20 22:17 Troponin I < 0.02 ng/mL (0-1.5) 01/16/20 22:17 Total Protein 5.6 g/dL (6.4-8.2) L 01/18/20 06:03 Albumin 2.4 g/dL (3.4-5.0) L 01/18/20 06:03 Globulin 3.2 g/dL (2.5-4.5) 01/18/20 06:03 Albumin/Globulin Ratio 0.8 Ratio (1.1-2.1) L 01/18/20 06:03 Triglycerides 106 mg/dL (0-150) 01/17/20 05:15 Cholesterol 174 mg/dL (0-200) 01/17/20 05:15 LDL Cholesterol, Calc 110 mg/dL (0-100) H 01/17/20 05:15 HDL Cholesterol 43 mg/dL (40-60) 01/17/20 05:15 Cholesterol/HDL Ratio 4.0 (0.0-5.0) 01/17/20 05:15 Specimen Type Clean catch urine 01/15/20 13:20 Urine Color Yellow (YELLOW) 01/15/20 13:20 Urine Appearance Clear (CLEAR) 01/15/20 13:20 Urine pH 5.0 (5.0 - 8.0) 01/15/20 13:20 Ur Specific [place] 1.015 (1.000-1.030) 01/15/20 13:20 Urine Protein Negative (NEGATIVE) 01/15/20 13:20 Urine Glucose (UA) Negative (NEGATIVE) 01/15/20 13:20 Urine Ketones Negative (NEGATIVE) 01/15/20 13:20 Urine Occult Blood Negative (NEGATIVE) 01/15/20 13:20 Urine Nitrite Negative (NEGATIVE) 01/15/20 13:20 Urine Bilirubin Negative (NEGATIVE) 01/15/20 13:20 Urine Urobilinogen Normal (NORMAL) 01/15/20 13:20 Ur Leukocyte Esterase Negative (NEGATIVE) 01/15/20 13:20 - Plan (1) Hyponatremia Status: Acute (2) Acute renal failure Status: Acute Plan: CONTINUE IV FLUIDS, MONITOR LABS (3) Syncope Status: Acute Qualifiers: Syncope type: unspecified Qualified Code(s): R55 - Syncope and collapse (4) Laceration of left leg Status: Acute Qualifiers: Encounter type: subsequent encounter Qualified Code(s): S81.812D - Laceration without foreign body, left lower leg, subsequent encounter
[2020-01-18 11:26] VITALS: BP 173/88
== END 2020-01-18 10:45 | disposition home or self-care (01) | DRG 683 ==
LOC: ER 11:39 → MED/SURG 13:56
PROVIDERS: ADMIT Internal Medicine; ATTEND Internal Medicine
DX: R53.1 Weakness; E86.0 Dehydration; K21.9 Gastro-esophageal reflux disease without esophagitis; R55 Syncope and collapse; F41.8 Other specified anxiety disorders; I10 Essential (primary) hypertension; R06.02 Shortness of breath; R29.6 Repeated falls; E87.1 Hypo-osmolality and hyponatremia; E03.8 Other specified hypothyroidism; N17.8 Other acute kidney failure

== ENCOUNTER 2021-01-27 18:55 | Inpatient (IN) ==
[2021-01-27 19:32] LABS: ABG ALLEN TEST POS; ABG HCO3 30.2 mmol/L (22-26)
[2021-01-27 19:34] LABS: BASOPHILS # (AUTO) 0.1 X10^3/uL (0.0-0.1); BASOPHILS % (AUTO) 0.4 % (0.2-1.0); HEMOGLOBIN 14.3 g/dL (13.5-18.0); LYMPHOCYTES # (AUTO) 0.6 X10^3/uL (1.3-2.9); LYMPHOCYTES % (AUTO) 3.8 % (21.0-51.0); MEAN CORPUSCULAR HEMOGLOBIN 29.5 pg (27.0-34.0); MEAN CORPUSCULAR HGB CONC 33.3 g/dL (33.0-35.0); MEAN CORPUSCULAR VOLUME 88.5 fL (80.0-100.0); MEAN PLATELET VOLUME 7.3 fL (7.4-11.0); MONOCYTES # (AUTO) 0.9 x10^3/uL (0.3-0.8); MONOCYTES % (AUTO) 6.1 % (0.0-13.0); NEUTROPHILS % (AUTO) 89.7 % (42.0-75.0); PLATELET COUNT 282 X10^3/uL (150.0-450.0); RED BLOOD COUNT 4.85 X10^6/uL (4.7-6.0); RED CELL DISTRIBUTION WIDTH 14.4 % (11.6-16.5); WHITE BLOOD COUNT 15.6 X10^3/uL (3.6-10.0)
[2021-01-27 19:50] LABS: BAND NEUTROPHILS % 4 % (0-10); PLATELET MORPHOLOGY COMMENT NORMAL (NORMAL)
[2021-01-27 19:57] LABS: ALANINE AMINOTRANSFERASE 29 Units/L (12-78); ALBUMIN 2.8 g/dL (3.4-5.0); ALKALINE PHOSPHATASE 88 Units/L (46-116); ASPARTATE AMINO TRANSFERASE 30 Units/L (15-37); BLOOD UREA NITROGEN 33 mg/dL (7-18); CALCIUM 8.9 mg/dL (8.5-10.1); CARBON DIOXIDE 29.4 mmol/L (21-32); CHLORIDE 101 mmol/L (98-107); CKMB % 4.3 % (<4); COR CA(FOR HYPOALB) 9.9 mg/dL (8.5-10.1); COR NA(FOR HYPERGLY) 140 mmol/L (136-145); CREATINE KINASE 47 Units/L (39-308); SODIUM 138 mmol/L (136-145); TOTAL PROTEIN 7.1 g/dL (6.4-8.2); TROPONIN I 0.04 ng/mL (0-1.5); eGFR NON BLACK RACES > 60 (>60)
--- NOTE | 2021-01-27 20:07 | DR.SOBA ---
HPI Time Seen Time Seen by Provider: 01/27/21 19:58 Primary Care Physician Primary Care Physician: SWETA HPI Comment HPI Comment: Pt was recently diagnosed with covid 19 .developed pneumonia .was initially treated with regen and then admitted at [place] .treated with remdesivir for 4 days .Pt sent home .today experienced increased shortness of breath EMS called with oxygen sat dropped in the 50s.Pt oxygen sat increased with non breather over74% Complaints Chief Complaint Doctors Comments: shortness of breath Chief Complaint:: PT IN ED VIA [facility] WITH C/O INCREASED WEAKNESS, FALLS AND DESATING O2 WITH 5L/NC. PT 53% ON 5L/NC AT HOME. 81% ON EMS ARRIVAL TO PT AT HOME. PT SATING 74% ON ARRIVAL TO ER. PT RECIEVED REGEN-COV HERE AND 4 DOSES OF REMDESIVIR IN [place]. COVID-19 Coronavirus risk:travel/contact w/high risk person: Yes Has patient experienced Coronavirus symptoms: Yes Coronavirus symptoms experienced: Coughing and Shortness of Breath Reviewed Nurses Notes Reviewed: Yes Source History Provided: Family Member and EMS Mode of Arrival Mode of Arrival: EMS Timing Onset of Chief Complaint: 01/20/21 Duration Duration: Hours Context Onset:: At Rest and With Light Exertion PE Risk Factors:: Immobilization (recent covid infection ) History of:: Hyperventiliation Currently on:: Inhaled Bronchodilators and Steroids Prehospital Care:: O2 and Inhaled B2 Modifying Factors Worsens:: Exertion and Lying Flat Improves:: Nothing Associated Signs and Symptoms Associated Signs and Symptoms: Wheeze If Cough Cough: Nonproductive PMH PMH Past Medical History: Yes Past Medical History: Hypertension and Hypothyroidism Past Surgical History: Yes Surgical History: Appendectomy and Ortho Surgery Family History History of Family Medical Conditions: Yes Family Medical History: Diabetes Mellitus, Cancer and Hypertension Social History Does patient currently use any type of tobacco product: No Have you used tobacco products in the last 12 months: No Type of Tobacco Use: None Does any household member use tobacco: No Alcohol Use: None Do you use any recreational Drugs:: No Lives With: Spouse Lives Where: Home Travel Risk Coronavirus risk:travel/contact w/high risk person: Yes Has patient experienced Coronavirus symptoms: Yes Coronavirus symptoms experienced: Coughing and Shortness of Breath Infectious screening In the last 2 months have you had wt loss of >10#?: NO Have you had fever, night sweats or hemotysis?: No Have you traveled outside the country in the last 6 months?: No Isolation: Droplet ROS Review of Systems Constitutional: Weakness and Fatigue Eyes: No Symptoms Reported ENTM: No Symptoms Reported Respiratoy: Non-Productive Cough and Short of Breath Cardiovascular: No Symptoms Reported Gastrointestinal/Abdominal: No Symptoms Reported Genitourinary: No Symptoms Reported Neurological: No Symptoms Reported Musculoskeletal: Back Pain Integumentary: No Symptoms Reported Hematologic/Lymphatic: No Symptoms Reported PE Vital Signs Vitals: Temperature 98.2 F Pulse Rate [Left] 78 Pulse Rate 73 Respiratory Rate 27 Blood Pressure [Left Arm] 199/97 Blood Pressure 199/97 O2 Sat by Pulse Oximetry 100 General General Appearance: Alert, Anxious, In Distress and Other (non breather in place ) Head Head Exam: Atraumatic and Normocephalic Eyes Eye exam: PERRL and EOMI ENT ENT Exam: Normal Oropharynx and Mucous Membranes Dry Neck Neck Exam: Normal Inspection and Full ROM Chest Chest Inspection: Normal Inspection and Symmetric Chest Wall Rise Respiratory Respiratory Exam: Bilateral: Rhonchi and Bilateral: Crackles Cardiovascular Cardiovascular Exam: +S1 and +S2 Abdominal Exam Abdominal Exam: Normal Bowel Sounds, Soft and Other (protuberant ) Extremities Extremities Exam: Other (no calf tenderness) Neurologic Neurological Exam: Alert Psychiatric Psychiatric Exam: Anxious Skin Skin Exam: Normal Color MDM Differential Diagnosis Differential Diagnosis: Anxiety, Hyperventilation, Pneumonia, Pneumothorax, Pulmonary embolism and Respiratory Failure COURSE Treatment Treatment: labs ,cxr ,keep oxygen above 94 % spoke with dr Goodwin agreed to admit patient in the hospital for hypoxia, pulmonary embolism ,covid 19 infection history of ROR Labs Reviewed Laboratory Results Reviewed?: Yes Result Diagrams: 01/27/21 19:20 01/27/21 19:20 Laboratory: WBC 15.6 X10^3/uL (3.6-10.0) H 01/27/21 19:20 RBC 4.85 X10^6/uL (4.7-6.0) 01/27/21 19:20 Hgb 14.3 g/dL (13.5-18.0) 01/27/21 19:20 Hct 43.0 % (42.0-54.0) 01/27/21 19:20 MCV 88.5 fL (80.0-100.0) 01/27/21 19:20 MCH 29.5 pg (27.0-34.0) 01/27/21 19:20 MCHC 33.3 g/dL (33.0-35.0) 01/27/21 19:20 RDW 14.4 % (11.6-16.5) 01/27/21 19:20 Plt Count 282 X10^3/uL (150.0-450.0) 01/27/21 19:20 Plt Count Comment Adequate (ADEQUATE) 01/27/21 19:20 MPV 7.3 fL (7.4-11.0) L 01/27/21 19:20 Neut % (Auto) 89.7 % (42.0-75.0) H 01/27/21 19:20 Lymph % (Auto) 3.8 % (21.0-51.0) L 01/27/21 19:20 [place] % (Auto) 6.1 % (0.0-13.0) 01/27/21 19:20 Eos % (Auto) 0.0 % (0.9-2.9) L 01/27/21 19:20 Baso % (Auto) 0.4 % (0.2-1.0) 01/27/21 19:20 Neut # (Auto) 14.0 x10^3/uL (2.2-4.8) H 01/27/21 19:20 Lymph # (Auto) 0.6 X10^3/uL (1.3-2.9) L 01/27/21 19:20 [place] # (Auto) 0.9 x10^3/uL (0.3-0.8) H 01/27/21 19:20 Eos # (Auto) 0.0 x10^3/uL (0.0-0.2) 01/27/21 19:20 Baso # (Auto) 0.1 X10^3/uL (0.0-0.1) 01/27/21 19:20 Absolute Nucleated RBC 0.1 /100WBC 01/27/21 19:20 Total Counted 100 01/27/21 19:20 Neutrophils % (Manual) 86 % (39-76) H 01/27/21 19:20 Band Neutrophils % 4 % (0-10) 01/27/21 19:20 Lymphocytes % (Manual) 6 % (13-43) L 01/27/21 19:20 Monocytes % (Manual) 4 % (4-9) 01/27/21 19:20 Plt Morphology Comment Normal (NORMAL) 01/27/21 19:20 RBC Morphology Normal (NORMAL) 01/27/21 19:20 PT 15.3 SECONDS (11.8-14.3) 01/27/21 19:20 INR Target Range - 01/27/21 19: INR 1.27 (0.8-1.3) 01/27/21 19:20 APTT 29.6 SECONDS (22.9-36.5) 01/27/21 19:20 PTT Comment - 01/27/21 19:20 D-Dimer > 20.00 ug/ml (0.0-0.57) H* 01/27/21 19:20 Sample Site Rrad 01/27/21 19:29 ABG pH 7.520 (7.35-7.45) H 01/27/21 19:29 ABG pCO2 37.0 mmHg (35.0-45.0) 01/27/21 19:29 ABG pO2 58.0 mmHg (80.0-100.0) L 01/27/21 19:29 ABG HCO3 30.2 mmol/L (22-26) H* 01/27/21 19:29 ABG O2 Saturation 93.0 % (90-100) 01/27/21 19:29 ABG Base Excess 7.0 mmol/L (-2.0-2.0) H 01/27/21 19:29 Ted Test Pos 01/27/21 19:29 A-a Gradient 609.0 mmHg 01/27/21 19:29 FiO2 100.0 01/27/21 19:29 Blood Gas Comments [place] well-mtf 01/27/21 19:29 Sodium 138 mmol/L (136-145) 01/27/21 19:20 Corrected Sodium 140 mmol/L (136-145) 01/27/21 19:20 Potassium 3.7 mmol/L (3.5-5.1) 01/27/21 19:20 Chloride 101 mmol/L (98-107) 01/27/21 19:20 Carbon Dioxide 29.4 mmol/L (21-32) 01/27/21 19:20 BUN 33 mg/dL (7-18) H 01/27/21 19:20 Creatinine 1.20 mg/dL (0.70-1.30) 01/27/21 19:20 Est GFR (MDRD) Af Amer > 60 (>60) 01/27/21 19:20 Est GFR (MDRD) Non-Af > 60 (>60) 01/27/21 19:20 Glucose 179 mg/dL (65-99) H 01/27/21 19:20 Calcium 8.9 mg/dL (8.5-10.1) 01/27/21 19:20 Corrected Calcium 9.9 mg/dL (8.5-10.1) 01/27/21 19:20 Total Bilirubin 0.70 mg/dL (0.2-1.0) 01/27/21 19:20 AST 30 Units/L (15-37) 01/27/21 19:20 ALT 29 Units/L (12-78) 01/27/21 19:20 Alkaline Phosphatase 88 Units/L (46-116) 01/27/21 19:20 Creatine Kinase 47 Units/L (39-308) 01/27/21 19:20 CK-MB (CK-2) 2.0 ng/mL (0-4.0) 01/27/21 19:20 CK/CKMB % Calc 4.3 % (<4) 01/27/21 19:20 Troponin I 0.04 ng/mL (0-1.5) 01/27/21 19:20 Total Protein 7.1 g/dL (6.4-8.2) 01/27/21 19:20 Albumin 2.8 g/dL (3.4-5.0) L 01/27/21 19:20 Globulin 4.3 g/dL (2.5-4.5) 01/27/21 19:20 Albumin/Globulin Ratio 0.7 Ratio (1.1-2.1) L 01/27/21 19:20 XRAY X-ray Results: cta pos pulmonary embolism Opioid Opioid Risk Tool Age (Giorgio box if 16-45): No History of Preadolescent Sexual Abuse: No Total: 0 Total Score Risk Category: Low Risk Copyright: [place] CHEW predicting aberrant behaviors Diagnosis Discharge Problem: Hypoxia, COVID-19 virus infection Pulmonary embolism Qualifiers: Pulmonary embolism type: unspecified Chronicity: acute Acute cor pulmonale presence: unspecified Qualified Code(s): I26.99 - Other pulmonary embolism without acute cor pulmonale
[2021-01-27] MEDS ORDERED: NS 100 ML IV 100 ML ONE (20:08)
--- NOTE | 2021-01-27 21:25 | CT ---
EXAM: CTA CHEST WITH INTRAVENOUS CONTRASTHISTORY: Shortness of breath. Elevated D-dimer..TECHNIQUE: Spiral axial CT images are obtained through the chest with the administration of intravenous contrast. Coronal, sagittal and 3D MIP images are reformatted.DOSIMETRY: Total DLP 607.7 mGycm; CTDI 59.7 mGyCOMPARISON: Chest CT dated January 22, 2021.FINDINGS:CARDIOVASCULAR: There are intravascular filling defects/PEs seen within bilateral lower lobe segmental and subsegmental pulmonary arteries; overall small clot burden. No evidence for gross central PE or saddle embolism is seen. There is severe aortic atherosclerosis; no aortic aneurysm or dissection is seen. There is coronary atherosclerosis. The heart size is within normal limits. No pericardial effusion is seen.MEDIASTINUM AND CARMELO: There is shotty bilateral hilar and mediastinal lymphadenopathy in keeping with reactive lymphadenopathy. No mass lesion, emphysema, or abnormal fluid collection is seen.LUNGS: There are extensive bilateral patchy groundglass parenchymal infiltrates in keeping with acute Covid pneumonia in the appropriate clinical setting; nonspecific finding; DDx includes airspace disease (with filling of alveoli, e.g. with fluid, pus, hemorrhage, or tumor cells) and interstitial lung disease (e.g. interstitial edema, interstitial pneumonia, and interstitial fibrosis). Clinical correlation is advised. There is no lung mass, lung nodule, or endobronchial obstructing lesion seen. No pleural effusion or pneumothorax is evident.CHEST WALL: There are no chest wall lesions seen. The visualized bony structures are within normal limits. No axillary lymphadenopathy is noted.UPPER ABDOMEN: Limited views through the upper abdomen demonstrate no gross acute abnormality. There is cholelithiasis.IMPRESSION:1. Extensive bilateral patchy groundglass parenchymal infiltrates in keeping with acute Covid pneumonia in the appropriate clinical setting (with significant interval progression of infiltrates compared with the previous exam). Clinical correlation is advised.2. Intravascular filling defects/PEs seen within bilateral lower lobe segmental and subsegmental pulmonary arteries; overall small clot burden (new findings).3. Coronary and aortic atherosclerosis; no aortic aneurysm or dissection.4. No lung mass, endobronchial obstructing lesion, pleural effusion, or pneumothorax seen.5. Cholelithiasis.Electronically signed by: Delores Smith (Jan 27, 2021 21:23:09)
[2021-01-27] MEDS ORDERED: HEPARIN SODIUM IN D5W 25,000 UNITS/500 ML BAG ONE (22:38)
[2021-01-27] MEDS ORDERED: TORADOL 60 MG VIAL IVP ONE (22:50)
[2021-01-27] MEDS ORDERED: TORADOL 60 MG VIAL ONE (22:52)
[2021-01-27] MEDS: HEPARIN SODIUM IN D5W 25,000 UNITS/500 ML BAG IV PRN (23:00)
[2021-01-27] MEDS ORDERED: HEPARIN SODIUM INJ 5000 UNITS ONE (23:17)
[2021-01-27] MEDS ORDERED: PERCOCET TAB 5/325 MG ONE (23:20)
[2021-01-27] MEDS ORDERED: PERCOCET TAB 5/325 MG PO ONE (23:21)
[2021-01-27] MEDS ORDERED: HEPARIN SODIUM INJ 5000 UNITS IVP ONE (23:25)
[2021-01-28] MEDS ORDERED: HEPARIN SODIUM IN D5W 25,000 UNITS/500 ML BAG IV PRN (00:46)
[2021-01-28] MEDS: NEURONTIN CAP 400 MG PO SCH ×4 (01:50→21:25)
--- NOTE | 2021-01-28 02:07 | RAD ---
HISTORYPT IN ED VIA ST[facility] WITH C/O INCREASED WEAKNESS, FALLS AND DESATING O2 WITH 5L/NC. PT 53% ON 5L/NC AT HOME. 81% ON EMS ARRIVAL TO PT AT HOME. PT SATING 74% ON ARRIVAL TO ER. HTN SX: APPY, ORTHOSTUDYCHEST, 1 [id number]/2021FINDINGSThe trachea is midline. The cardiac silhouette is unremarkable. Patchy parenchymal opacities involving the mid and lower lung silverio bilaterally. No pleural effusion or pneumothorax. The bony thorax is unremarkable.IMPRESSIONPatchy bilateral pneumonic infiltrates involving the mid and lower lung silverio.Electronically signed by: Joel Powell (Jan 28, 2021 02:05:22)
[2021-01-28] MEDS: PULMICORT NEB TX 0.5 MG NEB SCH ×2 (08:50→21:00)
[2021-01-28] MEDS: SYNTHROID 75 mcg TAB PO SCH (09:07)
[2021-01-28] MEDS: ZESTRIL TAB 10 MG PO SCH (09:07)
--- NOTE | 2021-01-28 10:31 | DR.H&P ---
H&P - History & Physical for Day of: H&P Date: 01/27/21 - Chief Complaint Chief Complaint: SOB, WEAKNESS - History of Present Illness History of Present Illness: Pt is 75 w[facility] ER admission with co pt was recently diagnosed with covid 19 .developed pneumonia .was initially treated with regen and then admitted at [place] .treated with remdesivir for 4 days .Pt sent home .today experienced increased shortness of breath EMS called with oxygen sat dropped in the 50s.Pt oxygen sat increased with non breather over74% - Past Medical History Past Medical History: Hypertension, Hypothyroidism Additional Medical History: Peripheral Neuropathy, Chronic Constipation, Back pain, Colon Cancer - Past Surgical History Surgical History: Appendectomy, Ortho Surgery Additional Surgical History: 7 Spinal Surgeries, Hernia Repair 2013, Surgery for Colon Cancer - Family History Family Medical History: Diabetes Mellitus, Cancer, Hypertension - Social History Does patient currently use any type of tobacco product: No Have you used tobacco products in the last 12 months: No Type of Tobacco Use: None Does any household member use tobacco: No Alcohol Use: None - Medications Home Medications: lorazepam [From Ativan] Allergy (Verified 01/27/21 19:36) morphine Adverse Reaction (Verified 01/15/20 12:20) nifedipine Adverse Reaction (Verified 01/15/20 12:20) MUSCLE RELAXERS Adverse Reaction (Uncoded 01/15/20 12:20) CONTINUE taking the following medications celecoxib 200 mg PO DAILY 01/27/21 [History] clonazepam 1 mg PO DAILY PRN 01/27/21 [History] oxycodone-acetaminophen 1 tab PO Q6H PRN 01/27/21 [History] - Review of Systems Constitutional: Weakness, Malaise Eyes: No Symptoms Reported ENT: No Symptoms Reported, Nose Congestion Respiratory: Shortness of Breath, SOB with Excertion Cardiovascular: Edema Gastrointestinal: Nausea Genitourinary: No Symptoms Reported Musculoskeletal: No Symptoms Reported Skin: No Symptoms Reported Neurological: Weakness - Physical Exam Vital Signs: Temperature 97.0 F Pulse Rate [Left] 71 Pulse Rate 58 Respiratory Rate 13 Blood Pressure [Left Arm] 155/79 Blood Pressure 118/60 O2 Sat by Pulse Oximetry 97 Oriented: Normal Eyes: Normal Ear: Normal Nose: Normal Throat: Normal Respiratory: RLL Diminished, LLL Diminished Cardiovascular: Normal : Normal Auscultation: Bowel Sounds: Normal Palpation: Normal Tenderness: Normal Skin: Decreased Turgur Musculoskeletal: Back:Thoracic, Back:Lumbar, Motor Deficit Psychiatric: Anxiety Affect: Anxious Speech Pattern: Clear, Appropriate - Assessment/Plan (1) Pulmonary embolism Qualifiers: Pulmonary embolism type: unspecified Chronicity: acute Acute cor pulmonale presence: unspecified Qualified Code(s): I26.99 - Other pulmonary embolism without acute cor pulmonale Status: Acute Plan: admit, covid isolation unit, supplemental O2. iv hydration, strict i&os, heparin drip per protcol. serial CE, EKG, verify home medication. bc on admis kailash, lactic acid. IV ATBX, CTA chest on admission (2) Hypoxia Status: Acute (3) COVID-19 virus infection Status: Acute (4) GERD (gastroesophageal reflux disease) Status: Chronic (5) Essential hypertension Status: Chronic - Allergies Allergies/Adverse Reactions: Allergies Allergy/AdvReac Type Severity Reaction Status Date / Time lorazepam [From Ativan] Allergy Verified 01/27/21 19:36 morphine AdvReac Verified 01/15/20 12:20 nifedipine AdvReac Verified 01/15/20 12:20 MUSCLE RELAXERS AdvReac Uncoded 01/15/20 12:20
[2021-01-28] MEDS ORDERED: ACCUNEB 1.25 MG NEBULE ONE (12:15)
[2021-01-28] MEDS: ACCUNEB 1.25 MG NEBULE NEB SCH ×2 (12:16→21:00)
[2021-01-28] MEDS ORDERED: HEPARIN SODIUM INJ 5000 UNITS IVP ONE (12:29)
[2021-01-28] MEDS: ZOSYN VIAL 3.375 GRAMS 3.375 G in NS 100 ML IV + SPIKE MINIBAG* 100 ML IV SCH ×3 (12:49→21:25)
[2021-01-28] MEDS: PROTONIX INJ 40 MG VIAL IVP SCH ×2 (12:49→21:25)
[2021-01-28] MEDS: PERCOCET TAB 5/325 MG PO PRN ×2 (13:28→21:25)
[2021-01-28 20:53] LABS: BILIRUBIN,URINE NEGATIVE (NEGATIVE); BLOOD/HEMOGLOBIN,URINE NEGATIVE (NEGATIVE); GLUCOSE, URINE NEGATIVE (NEGATIVE); KETONES,URINE NEGATIVE (NEGATIVE); LEUKOCYTE ESTERASE ,URINE NEGATIVE (NEGATIVE); NITRITES,URINE NEGATIVE (NEGATIVE); PROTEIN,URINE 2+ (NEGATIVE); UROBILINOGEN,URINE 2+ (NORMAL)
[2021-01-28 20:55] LABS: APPEARANCE,URINE CLEAR (CLEAR); COLOR,URINE DARK YELLOW (YELLOW)
[2021-01-28 21:00] LABS: BACTERIA,URINE 1+ /HPF (NEGATIVE); HYALINE CASTS, URINE FEW /LPF (NEGATIVE); RBC,URINE 0-2 /HPF (0-3); SQUAMOUS EPITHELIAL CELL,UR RARE /HPF (NEGATIVE); TRANSITIONAL EPI CELLS,URINE FEW /HPF (NEGATIVE)
[2021-01-28] MEDS: HEPARIN SODIUM IN D5W 25,000 UNITS/500 ML BAG IV PRN (22:35)
[2021-01-28] MEDS: ROBITUSSIN DM PO PRN (23:58)
[2021-01-29 03:05] LABS: BASOPHILS # (AUTO) 0.1 X10^3/uL (0.0-0.1); BASOPHILS % (AUTO) 0.7 % (0.2-1.0); EOSINOPHILS % (AUTO) 0.2 % (0.9-2.9); HEMATOCRIT 34.9 % (42.0-54.0); HEMOGLOBIN 11.8 g/dL (13.5-18.0); LYMPHOCYTES # (AUTO) 0.4 X10^3/uL (1.3-2.9); LYMPHOCYTES % (AUTO) 3.3 % (21.0-51.0); MEAN CORPUSCULAR HGB CONC 33.7 g/dL (33.0-35.0); MEAN CORPUSCULAR VOLUME 88.8 fL (80.0-100.0); MEAN PLATELET VOLUME 7.8 fL (7.4-11.0); MONOCYTES # (AUTO) 0.6 x10^3/uL (0.3-0.8); MONOCYTES % (AUTO) 4.4 % (0.0-13.0); NEUTROPHILS # (AUTO) 12.1 x10^3/uL (2.2-4.8); NEUTROPHILS % (AUTO) 91.4 % (42.0-75.0); PLATELET COUNT 239 X10^3/uL (150.0-450.0); RED BLOOD COUNT 3.93 X10^6/uL (4.7-6.0); RED CELL DISTRIBUTION WIDTH 14.7 % (11.6-16.5); WHITE BLOOD COUNT 13.2 X10^3/uL (3.6-10.0)
[2021-01-29 03:25] LABS: BAND NEUTROPHILS % 1 % (0-10); PLATELET MORPHOLOGY COMMENT NORMAL (NORMAL)
[2021-01-29 03:26] LABS: CALCIUM 7.5 mg/dL (8.5-10.1); CARBON DIOXIDE 30.9 mmol/L (21-32); COR CA(FOR HYPOALB) 9.1 mg/dL (8.5-10.1); CREATININE 1.78 mg/dL (0.70-1.30)
[2021-01-29] MEDS ORDERED: HEPARIN SODIUM INJ 5000 UNITS IVP ONE ×2 (03:52→12:21)
[2021-01-29 05:28] LABS: ABG ALLEN TEST POS; ABG BASE EXCESS 4.6 mmol/L (-2.0-2.0); ABG HCO3 28.3 mmol/L (22-26)
[2021-01-29] MEDS: ZOSYN VIAL 3.375 GRAMS 3.375 G in NS 100 ML IV + SPIKE MINIBAG* 100 ML IV SCH ×3 (06:06→22:00)
[2021-01-29] MEDS: NEURONTIN CAP 400 MG PO SCH ×3 (06:06→22:00)
[2021-01-29] MEDS: ACCUNEB 1.25 MG NEBULE NEB SCH ×3 (06:37→21:42)
--- NOTE | 2021-01-29 07:56 | RAD ---
HISTORYCOVID-19STUDYPortable AP [id number]/2021FINDINGSHeart size is unchanged. There is interval progression of extensive bilateral airspace disease without evidence for associated pleural fluid or pneumothorax.IMPRESSIONInterval progression of bilateral pulmonary infiltrates/pneumonia.Electronically signed by: JAIDEN SHABAZZ (Jan 29, 2021 07:53:55)
[2021-01-29] MEDS: PROTONIX INJ 40 MG VIAL IVP SCH ×2 (08:23→21:00)
[2021-01-29] MEDS: SYNTHROID 75 mcg TAB PO SCH (08:23)
[2021-01-29] MEDS: PULMICORT NEB TX 0.5 MG NEB SCH ×2 (08:45→21:42)
[2021-01-29 09:40] VITALS: BMI 28.5
[2021-01-29] MEDS: NS 1000 ML 1,000 ML IV SCH (10:00)
[2021-01-29] MEDS: ZESTRIL TAB 10 MG PO SCH (10:36)
[2021-01-29] MEDS: SOLU-Medrol 40 MG VIAL IVP SCH ×3 (11:22→22:00)
[2021-01-29] MEDS ORDERED: HEPARIN SODIUM INJ 5000 UNITS ONE (12:24)
[2021-01-29] MEDS ORDERED: MAGIC MOUTHWASH MT PRN (12:49)
[2021-01-29] MEDS ORDERED: MAGIC MOUTHWASH ONE (12:58)
[2021-01-29] MEDS ORDERED: KLONOPIN TAB 1 MG ONE (14:29)
[2021-01-29] MEDS: KLONOPIN TAB 0.5 MG PO PRN (14:52)
[2021-01-29] MEDS: HEPARIN SODIUM IN D5W 25,000 UNITS/500 ML BAG IV PRN (16:55)
[2021-01-29] MEDS: PERCOCET TAB 5/325 MG PO PRN (19:48)
[2021-01-29] MEDS ORDERED: POTASSIUM CHL 60 MEQ/NS 0.45% 500 ML IV PRN (20:39)
[2021-01-29] MEDS ORDERED: KLOR-CON PO PRN (20:39)
[2021-01-29] MEDS ORDERED: MAGNESIUM SULFATE 1 GRAM/100 mL PREMIX 1 GM/100 ML BAG IV PRN (20:39)
[2021-01-29] MEDS ORDERED: K-DUR TAB 20 MEQ PO PRN (20:39)
[2021-01-29] MEDS ORDERED: MICRO K EXTEN CAP 10 MEQ PO PRN (20:39)
[2021-01-29] MEDS ORDERED: POTASSIUM CHL 40 MEQ/NS 0.45% 500 ML IV PRN (20:39)
[2021-01-29] MEDS ORDERED: POTASSIUM CHLORIDE LIQ 20 MEQ UDC PO PRN (20:39)
[2021-01-30 03:08] LABS: BASOPHILS # (AUTO) 0.1 X10^3/uL (0.0-0.1); BASOPHILS % (AUTO) 0.9 % (0.2-1.0); HEMATOCRIT 35.1 % (42.0-54.0); HEMOGLOBIN 11.6 g/dL (13.5-18.0); LYMPHOCYTES # (AUTO) 0.3 X10^3/uL (1.3-2.9); LYMPHOCYTES % (AUTO) 2.4 % (21.0-51.0); MEAN CORPUSCULAR HEMOGLOBIN 29.7 pg (27.0-34.0); MEAN CORPUSCULAR VOLUME 90.1 fL (80.0-100.0); MONOCYTES # (AUTO) 0.4 x10^3/uL (0.3-0.8); MONOCYTES % (AUTO) 3.1 % (0.0-13.0); NEUTROPHILS # (AUTO) 10.8 x10^3/uL (2.2-4.8); NEUTROPHILS % (AUTO) 93.6 % (42.0-75.0); PLATELET COUNT 259 X10^3/uL (150.0-450.0); RED CELL DISTRIBUTION WIDTH 14.8 % (11.6-16.5); WHITE BLOOD COUNT 11.6 X10^3/uL (3.6-10.0)
[2021-01-30 03:16] LABS: ALANINE AMINOTRANSFERASE 20 Units/L (12-78); ALBUMIN 1.8 g/dL (3.4-5.0); ALKALINE PHOSPHATASE 78 Units/L (46-116); ASPARTATE AMINO TRANSFERASE 19 Units/L (15-37); BLOOD UREA NITROGEN 31 mg/dL (7-18); CALCIUM 7.8 mg/dL (8.5-10.1); CARBON DIOXIDE 29.9 mmol/L (21-32); CHLORIDE 101 mmol/L (98-107); COR CA(FOR HYPOALB) 9.6 mg/dL (8.5-10.1); COR NA(FOR HYPERGLY) 140 mmol/L (136-145); CREATININE 1.42 mg/dL (0.70-1.30); SODIUM 137 mmol/L (136-145); TOTAL PROTEIN 5.9 g/dL (6.4-8.2); eGFR NON BLACK RACES 51 (>60)
[2021-01-30 03:31] LABS: BAND NEUTROPHILS % 3 % (0-10); PLATELET MORPHOLOGY COMMENT NORMAL (NORMAL)
[2021-01-30] MEDS: PERCOCET TAB 5/325 MG PO PRN ×2 (04:46→20:30)
[2021-01-30 05:40] LABS: ABG ALLEN TEST POS; ABG BASE EXCESS 0.5 mmol/L (-2.0-2.0); ABG HCO3 25.4 mmol/L (22-26)
[2021-01-30] MEDS: NEURONTIN CAP 400 MG PO SCH ×3 (05:45→21:15)
[2021-01-30] MEDS: NS 1000 ML 1,000 ML IV SCH ×3 (05:52→15:29)
[2021-01-30] MEDS: SOLU-Medrol 40 MG VIAL IVP SCH (05:56)
[2021-01-30] MEDS: ZOSYN VIAL 3.375 GRAMS 3.375 G in NS 100 ML IV + SPIKE MINIBAG* 100 ML IV SCH ×3 (05:57→22:10)
--- NOTE | 2021-01-30 06:44 | RAD ---
HISTORYSOB, COVID+STUDYCHEST, 1 [id number]/13/2021.TECHNIQUEAP view of the chestFINDINGSCardiac and mediastinal contours are within normal limits. Interval improvement in bilateral airspace and interstitial opacities. Left costophrenic sulcus is not completely within the field of view. No definite pleural effusion or pneumothorax.IMPRESSIONInterval improvement in opacities from COVID 19 pneumonia.Electronically signed by: Jose Francisco Boone (Jan 30, 2021 06:42:59)
[2021-01-30] MEDS: ZESTRIL TAB 10 MG PO SCH (08:11)
[2021-01-30] MEDS: PROTONIX INJ 40 MG VIAL IVP SCH ×2 (08:11→20:56)
[2021-01-30] MEDS: SYNTHROID 75 mcg TAB PO SCH (08:11)
[2021-01-30] MEDS ORDERED: PHARMACY CONSULT - IVERMECTIN XX SCH (09:00)
[2021-01-30] MEDS: ACCUNEB 1.25 MG NEBULE NEB SCH ×3 (09:05→21:01)
[2021-01-30] MEDS: PULMICORT NEB TX 0.5 MG NEB SCH ×2 (09:05→21:01)
[2021-01-30] MEDS: IVERMECTIN PO SCH (09:17)
[2021-01-30] MEDS: REMDESIVIR 100 MG in NS 100 ML IV + SPIKE MINIBAG* 120 ML IV SCH (09:17)
[2021-01-30] MEDS: SOLU-Medrol 125 MG VIAL IVP SCH ×3 (11:11→21:15)
[2021-01-30] MEDS: PEPCID 20 MG IV PREMIX* 20 MG/50 ML BAG IV SCH ×2 (11:11→21:15)
--- NOTE | 2021-01-30 11:49 | PCM.PROG ---
Progress Note - Progress Note for Day of Date of Exam: 01/29/21 - Subjective Subjective: IS A 75 YEAR OLD PATIENT OF OURS. HE WAS ADMITTED TO THE HOSPITAL ON 01/27/2021 FOR TREATMENT OF PULMONARY EMBOLISM, HYPOXIA, COVID-19, COVID PNEUMONIA. HIS PMH INCLUDES: HTN, HYPOTHYROIDISM, HX COLON CANCER, APPENDECTOMY, SPINAL SURGERY, HERNIA REPAIR, COLON RESECTION. PATIENT REPORTS BEING DIAGNOSED WITH COVID JUST OVER TWO WEEKS AGO. HE RECEIVED REGEN-COV ON 01/11/21. THE FOLLOWING DAY, HE WAS ADMITTED TO THE HOSPITAL IN [place]. DURING HIS STAY, HE RECEIVED FOUR DOSES OF REMDESIVIR. HE WAS SENT HOME ON 01/27 WITH HOME OXYGEN. PATIENT REPORTS THAT WHILE AT HOME, HIS SATURATION DROPPED TO THE 50s. WHEN EMS ARRIVED AND PLACED PATIENT ON THE NON-REBREATHER, SATURATIONS INCREASED TO 90s. TODAY, PATIENT IS ALERT AND ORIENTED, LYING IN BED ON MORNING ROUNDS. HE IS CURRENTLY ON HEATED HIGH FLOW OXYGEN. SATURATIONS HAVE BEEN 87-96% THIS MORNING AND THROUGHOUT THE NIGHT. ON EXAMINATION, HEART IS REGULAR IN RATE AND RHYTHM. BILATERAL LUNGS ARE NOTED WITH DIMINISHED LUNG SOUNDS THROUGHOUT. ABDOMEN IS ROUND, SOFT, AND NON-TENDER WITH NORMAL BOWEL SOUNDS NOTED IN ALL QUADRANTS. HIS VITALS THIS MORNING ARE: 97.6-61-19-95%-105/52. LABS WERE OBTAINED. ABNORMAL LAB VALUES INCLUDE THE FOLLOWING: WBC 13.2, RBC 3.93, HGB 11.8, HCT 34.9, BUN 42, CREATININE 1.78, GLUCOSE 165, CALCIUM 7.5, CRP 101.70, TOTAL PROTEIN 5.0, ALBUMIN 2.0. ABG REVEALED: PH 7.480, PC02 38, P02 59, HC03 28 .3, 02 SAT 92, BASE EXCESS 4.6, A-A GRADIENT 607, FI02 100. BLOOD CULTURES ARE PENDING. CHEST XRAY WAS OBTAINED AND REVEALED: Interval progression of bilateral pulmonary infiltrates/pneumonia. HE IS CURRENTLY RECEIVING ZOSYN 3.375G IV TID, ALBUTEROL NEBS TID, PULMICORT NEBS BID, HEPARIN IV DRIP, PROTONIX 40MG IV BID, PERCOCET 5/325 1.5 TAB PO Q6H PRN, ROBITUSSIN DM 10ML PO Q4H PRN, SYNTHROID 75MCG PO DAILY, ZESTRIL 5MG PO DAILY. TODAY, WE WILL ADD THE POTASSIUM AND MAGNESIUM PROTOCOL. WE WILL ALSO ADD NORMAL SALINE AT 75 ML/HR, REMDESIVIR 100MG IV DAILY, AND SOLU-MEDROL 80MG IV Q8H. OTHERWISE, WE PLAN TO FOLLOW UP WITH AM LABS AND CHEST XRAY AND CONTINUE TO MONITOR. TIME SPENT ON CLINICAL ASSESSMENT, REVIEWING LABS AND IMAGING, DECISION MAKING, AND DOCUMENTATION GREATER THAN 45 MINUTES. - Past Medical Family Social History Past Med/Fam/Surg Hx: No changes since H&P Allergies: Allergies lorazepam [From Ativan] Allergy (Verified 01/27/21 19:36) morphine Adverse Reaction (Verified 01/15/20 12:20) nifedipine Adverse Reaction (Verified 01/15/20 12:20) MUSCLE RELAXERS Adverse Reaction (Uncoded 01/15/20 12:20) - Review of Systems ROS: No change since H&P - Vital Signs and I&O's Vital Signs: Temperature 96.7 F Pulse Rate [Left] 71 Pulse Rate 74 Respiratory Rate 19 Blood Pressure [Left Arm] 155/79 Blood Pressure 165/83 O2 Sat by Pulse Oximetry 92 Intake and Output: Intake & Output 01/27/21 01/28/21 01/29/21 01/30/21 11:59 11:59 11:59 11:59 Intake Total 213 / 213 1890 / 1890 3398 / 3398 Output Total 300 / 300 400 / 400 1550 / 1550 Balance -87 / -87 1490 / 1490 1848 / 1848 - Physical Exam Oriented: Normal Eyes: Normal Ear: Normal Nose: Normal Throat: Normal Respiratory: Generalized, Diminished Cardiovascular: Normal : Normal Auscultation: Bowel Sounds: Normal Palpation: Normal Tenderness: Normal Skin: Decreased Turgur Musculoskeletal: Back:Thoracic, Back:Lumbar, Motor Deficit Psychiatric: Anxiety Affect: Anxious Speech Pattern: Clear, Appropriate - Laboratory and Diagnostics Result Diagrams: 01/30/21 02:50 01/30/21 02:50 Labs: 01/28/21 11:00 Blood Blood Culture - Preliminary 01/28/21 10:49 Blood Blood Culture - Preliminary Laboratory WBC 11.6 X10^3/uL (3.6-10.0) H 01/30/21 02:50 RBC 3.90 X10^6/uL (4.7-6.0) L 01/30/21 02:50 Hgb 11.6 g/dL (13.5-18.0) L 01/30/21 02:50 Hct 35.1 % (42.0-54.0) L 01/30/21 02:50 MCV 90.1 fL (80.0-100.0) 01/30/21 02:50 MCH 29.7 pg (27.0-34.0) 01/30/21 02:50 MCHC 33.0 g/dL (33.0-35.0) 01/30/21 02:50 RDW 14.8 % (11.6-16.5) 01/30/21 02:50 Plt Count 259 X10^3/uL (150.0-450.0) 01/30/21 02:50 Plt Count Comment Adequate (ADEQUATE) 01/30/21 02:50 MPV 8.0 fL (7.4-11.0) 01/30/21 02:50 Neut % (Auto) 93.6 % (42.0-75.0) H 01/30/21 02:50 Lymph % (Auto) 2.4 % (21.0-51.0) L 01/30/21 02:50 [place] % (Auto) 3.1 % (0.0-13.0) 01/30/21 02:50 Eos % (Auto) 0.0 % (0.9-2.9) L 01/30/21 02:50 Baso % (Auto) 0.9 % (0.2-1.0) 01/30/21 02:50 Neut # (Auto) 10.8 x10^3/uL (2.2-4.8) H 01/30/21 02:50 Lymph # (Auto) 0.3 X10^3/uL (1.3-2.9) L 01/30/21 02:50 [place] # (Auto) 0.4 x10^3/uL (0.3-0.8) 01/30/21 02:50 Eos # (Auto) 0.0 x10^3/uL (0.0-0.2) 01/30/21 02:50 Baso # (Auto) 0.1 X10^3/uL (0.0-0.1) 01/30/21 02:50 Absolute Nucleated RBC 0.0 /100WBC 01/30/21 02:50 Total Counted 100 01/30/21 02:50 Neutrophils % (Manual) 87 % (39-76) H 01/30/21 02:50 Band Neutrophils % 3 % (0-10) 01/30/21 02:50 Lymphocytes % (Manual) 8 % (13-43) L 01/30/21 02:50 Monocytes % (Manual) 2 % (4-9) L 01/30/21 02:50 Plt Morphology Comment Normal (NORMAL) 01/30/21 02:50 RBC Morphology Normal (NORMAL) 01/30/21 02:50 PT 16.1 SECONDS (11.8-14.3) 01/28/21 04:40 INR Target Range - 01/28/21 04:40 INR 1.35 (0.8-1.3) H 01/28/21 04:40 APTT 93.3 SECONDS (22.9-36.5) H 01/30/21 10:30 PTT Comment - 01/30/21 10:30 D-Dimer > 20.00 ug/ml (0.0-0.57) H* 01/27/21 19:20 Sample Site Rrad 01/30/21 05:37 ABG pH 7.400 (7.35-7.45) 01/30/21 05:37 ABG pCO2 41.0 mmHg (35.0-45.0) 01/30/21 05:37 ABG pO2 100.0 mmHg (80.0-100.0) 01/30/21 05:37 ABG HCO3 25.4 mmol/L (22-26) 01/30/21 05:37 ABG O2 Saturation 98.0 % (90-100) 01/30/21 05:37 ABG Base Excess 0.5 mmol/L (-2.0-2.0) 01/30/21 05:37 Ted Test Pos 01/30/21 05:37 A-a Gradient 419.0 mmHg 01/30/21 05:37 FiO2 80.0 01/30/21 05:37 Blood Gas Comments [place] abg well-mtf 01/30/21 05:37 Sodium 137 mmol/L (136-145) 01/30/21 02:50 Corrected Sodium 140 mmol/L (136-145) 01/30/21 02:50 Potassium 3.9 mmol/L (3.5-5.1) 01/30/21 02:50 Chloride 101 mmol/L (98-107) 01/30/21 02:50 Carbon Dioxide 29.9 mmol/L (21-32) 01/30/21 02:50 BUN 31 mg/dL (7-18) H 01/30/21 02:50 Creatinine 1.42 mg/dL (0.70-1.30) H 01/30/21 02:50 Est GFR (MDRD) Af Amer > 60 (>60) 01/30/21 02:50 Est GFR (MDRD) Non-Af 51 (>60) L 01/30/21 02:50 Glucose 235 mg/dL (65-99) H 01/30/21 02:50 Lactic Acid 1.9 mmol/L (0.4-2.0) 01/28/21 10:49 Calcium 7.8 mg/dL (8.5-10.1) L 01/30/21 02:50 Corrected Calcium 9.6 mg/dL (8.5-10.1) 01/30/21 02:50 Magnesium 2.1 mg/dL (1.7-2.9) 01/29/21 21:44 Total Bilirubin 0.50 mg/dL (0.2-1.0) 01/30/21 02:50 AST 19 Units/L (15-37) 01/30/21 02:50 ALT 20 Units/L (12-78) 01/30/21 02:50 Alkaline Phosphatase 78 Units/L (46-116) 01/30/21 02:50 Creatine Kinase 47 Units/L (39-308) 01/27/21 19:20 CK-MB (CK-2) 2.0 ng/mL (0-4.0) 01/27/21 19:20 CK/CKMB % Calc 4.3 % (<4) 01/27/21 19:20 Troponin I 0.04 ng/mL (0-1.5) 01/27/21 19:20 C-Reactive Protein 122.90 mg/L (0-3.0) H 01/30/21 02:50 B-Natriuretic Peptide 42.7 pg/mL (0-79) 01/30/21 02:50 Total Protein 5.9 g/dL (6.4-8.2) L 01/30/21 02:50 Albumin 1.8 g/dL (3.4-5.0) L 01/30/21 02:50 Globulin 4.1 g/dL (2.5-4.5) 01/30/21 02:50 Albumin/Globulin Ratio 0.4 Ratio (1.1-2.1) L 01/30/21 02:50 Specimen Type Catherized urine 01/28/21 19:58 Urine Color Dark yellow (YELLOW) 01/28/21 19:58 Urine Appearance Clear (CLEAR) 01/28/21 19:58 Urine pH 5.0 (5.0 - 8.0) 01/28/21 19:58 Ur Specific [place] 1.015 (1.000-1.030) 01/28/21 19:58 Urine Protein 2+ (NEGATIVE) 01/28/21 19:58 Urine Glucose (UA) Negative (NEGATIVE) 01/28/21 19:58 Urine Ketones Negative (NEGATIVE) 01/28/21 19:58 Urine Occult Blood Negative (NEGATIVE) 01/28/21 19:58 Urine Nitrite Negative (NEGATIVE) 01/28/21 19:58 Urine Bilirubin Negative (NEGATIVE) 01/28/21 19:58 Urine Urobilinogen 2+ (NORMAL) 01/28/21 19:58 Ur Leukocyte Esterase Negative (NEGATIVE) 01/28/21 19:58 Urine RBC 0-2 /HPF (0-3) 01/28/21 19:58 Urine WBC 0-2 /HPF (0-5) 01/28/21 19:58 Ur Squamous Epith Cells Rare /HPF (NEGATIVE) 01/28/21 19:58 Ur Transition Epith Cell Few /HPF (NEGATIVE) 01/28/21 19:58 Urine Bacteria 1+ /HPF (NEGATIVE) 01/28/21 19:58 Hyaline Casts Few /LPF (NEGATIVE) 01/28/21 19:58 Ur Culture Indicated? No/not indicated 01/28/21 19:58 - Plan (1) Pulmonary embolism Status: Acute Qualifiers: Pulmonary embolism type: unspecified Chronicity: acute Acute cor pulmonale presence: unspecified Qualified Code(s): I26.99 - Other pulmonary embolism without acute cor pulmonale Plan: SUPPLEMENTAL OXYGEN, ZOSYN 3.375G IV TID, ALBUTEROL NEBS TID, PULMICORT NEBS BID, HEPARIN IV DRIP, PROTONIX 40MG IV BID, PERCOCET 5/325 1.5 TAB PO Q6H PRN, ROBITUSSIN DM 10ML PO Q4H PRN, SYNTHROID 75MCG PO DAILY, ZESTRIL 5MG PO DAILY. TODAY, WE WILL ADD THE POTASSIUM AND MAGNESIUM PROTOCOL. WE WILL ALSO ADD NORMAL SALINE AT 75 ML/HR, REMDESIVIR 100MG IV DAILY, AND SOLU-MEDROL 80MG IV Q8H. (2) Pneumonia due to COVID-19 virus Status: Acute (3) COVID-19 virus infection Status: Acute (4) Hypoxia Status: Acute
--- NOTE | 2021-01-30 12:12 | PCM.PROG ---
Progress Note - Progress Note for Day of Date of Exam: 01/30/21 - Subjective Subjective: IS A 75 YEAR OLD PATIENT OF OURS. HE WAS ADMITTED TO THE HOSPITAL ON 01/27/2021 FOR TREATMENT OF PULMONARY EMBOLISM, HYPOXIA, COVID-19, COVID PNEUMONIA. HIS PMH INCLUDES: HTN, HYPOTHYROIDISM, HX COLON CANCER, APPENDECTOMY, SPINAL SURGERY, HERNIA REPAIR, COLON RESECTION. PATIENT REPORTS BEING DIAGNOSED WITH COVID JUST OVER TWO WEEKS AGO. HE RECEIVED REGEN-COV ON 01/11/21. THE FOLLOWING DAY, HE WAS ADMITTED TO THE HOSPITAL IN [place]. DURING HIS STAY, HE RECEIVED FOUR DOSES OF REMDESIVIR. HE WAS SENT HOME ON 01/27 WITH HOME OXYGEN. PATIENT REPORTS THAT WHILE AT HOME, HIS SATURATION DROPPED TO THE 50s. WHEN EMS ARRIVED AND PLACED PATIENT ON THE NON-REBREATHER, SATURATIONS INCREASED TO 90s. TODAY, PATIENT IS ALERT AND ORIENTED, LYING IN BED ON MORNING ROUNDS. HE IS CURRENTLY ON HEATED HIGH FLOW OXYGEN. SATURATIONS HAVE BEEN 87-96% THIS MORNING AND THROUGHOUT THE NIGHT. ON EXAMINATION, HEART IS REGULAR IN RATE AND RHYTHM. BILATERAL LUNGS ARE NOTED WITH DIMINISHED LUNG SOUNDS THROUGHOUT. ABDOMEN IS ROUND, SOFT, AND NON-TENDER WITH NORMAL BOWEL SOUNDS NOTED IN ALL QUADRANTS. HIS VITALS THIS MORNING ARE: 96.7-67-23-96%-173/84. LABS WERE OBTAINED. ABNORMAL LAB VALUES INCLUDE THE FOLLOWING: WBC 11.6, RBC 3.90, HGB 11.6, HCT 35.1, BUN 31, CREATININE 1.42, GLUCOSE 235, CALCIUM 7.8, CRP 122.90, TOTAL PROTEIN 5.9, ALBUMIN 1.8. ABG REVEALED: PH 7.400, PC02 41, P02 100, HC03 2 5.4, 02 SAT 98, A-A GRADIENT 419, FI02 80. BLOOD CULTURES ARE PENDING. CHEST XRAY WAS OBTAINED AND REVEALED: Interval improvement in opacities from COVID 19 pneumonia. HE IS CURRENTLY RECEIVING NORMAL SALINE AT 75 ML/HR, REMDESIVIR 100MG IV DAILY, AND SOLU-MEDROL 80MG IV Q8H, ZOSYN 3.375G IV TID, ALBUTEROL NEBS TID, PULMICORT NEBS BID, HEPARIN IV DRIP, PROTONIX 40MG IV BID, PERCOCET 5/325 1.5 TAB PO Q6H PRN, ROBITUSSIN DM 10ML PO Q4H PRN, SYNTHROID 75MCG PO DAILY, ZESTRIL 5MG PO DAILY, THE POTASSIUM AND MAGNESIUM PROTOCOL. TODAY, WE WILL INCREASE SOLU-MEDROL TO 125MG IV Q6H. WE WILL ALSO ADD PEPCID 20MG IV Q12H. OTHERWISE, WE PLAN TO FOLLOW UP WITH AM LABS AND CHEST XRAY AND CONTINUE TO MONITOR. TIME SPENT ON CLINICAL ASSESSMENT, REVIEWING LABS AND IMAGING, DECISION MAKING, AND DOCUMENTATION GREATER THAN 45 MINUTES. - Past Medical Family Social History Past Med/Fam/Surg Hx: No changes since H&P Allergies: Allergies lorazepam [From Ativan] Allergy (Verified 01/27/21 19:36) morphine Adverse Reaction (Verified 01/15/20 12:20) nifedipine Adverse Reaction (Verified 01/15/20 12:20) MUSCLE RELAXERS Adverse Reaction (Uncoded 01/15/20 12:20) - Review of Systems ROS: No change since H&P - Vital Signs and I&O's Vital Signs: Temperature 96.7 F Pulse Rate [Left] 71 Pulse Rate 59 Respiratory Rate 20 Blood Pressure [Left Arm] 155/79 Blood Pressure 133/62 O2 Sat by Pulse Oximetry 83 Intake and Output: Intake & Output 01/28/21 01/29/21 01/30/21 01/31/21 11:59 11:59 11:59 11:59 Intake Total 213 / 213 1890 / 1890 3398 / 3398 Output Total 300 / 300 400 / 400 1550 / 1550 Balance -87 / -87 1490 / 1490 1848 / 1848 - Physical Exam Oriented: Normal Eyes: Normal Ear: Normal Nose: Normal Throat: Normal Respiratory: Generalized, Diminished Cardiovascular: Normal : Normal Auscultation: Bowel Sounds: Normal Palpation: Normal Tenderness: Normal Skin: Decreased Turgur Musculoskeletal: Back:Thoracic, Back:Lumbar, Motor Deficit Psychiatric: Anxiety Affect: Anxious Speech Pattern: Clear, Appropriate - Laboratory and Diagnostics Result Diagrams: 01/30/21 02:50 01/30/21 02:50 Labs: 01/28/21 11:00 Blood Blood Culture - Preliminary 01/28/21 10:49 Blood Blood Culture - Preliminary Laboratory WBC 11.6 X10^3/uL (3.6-10.0) H 01/30/21 02:50 RBC 3.90 X10^6/uL (4.7-6.0) L 01/30/21 02:50 Hgb 11.6 g/dL (13.5-18.0) L 01/30/21 02:50 Hct 35.1 % (42.0-54.0) L 01/30/21 02:50 MCV 90.1 fL (80.0-100.0) 01/30/21 02:50 MCH 29.7 pg (27.0-34.0) 01/30/21 02:50 MCHC 33.0 g/dL (33.0-35.0) 01/30/21 02:50 RDW 14.8 % (11.6-16.5) 01/30/21 02:50 Plt Count 259 X10^3/uL (150.0-450.0) 01/30/21 02:50 Plt Count Comment Adequate (ADEQUATE) 01/30/21 02:50 MPV 8.0 fL (7.4-11.0) 01/30/21 02:50 Neut % (Auto) 93.6 % (42.0-75.0) H 01/30/21 02:50 Lymph % (Auto) 2.4 % (21.0-51.0) L 01/30/21 02:50 [place] % (Auto) 3.1 % (0.0-13.0) 01/30/21 02:50 Eos % (Auto) 0.0 % (0.9-2.9) L 01/30/21 02:50 Baso % (Auto) 0.9 % (0.2-1.0) 01/30/21 02:50 Neut # (Auto) 10.8 x10^3/uL (2.2-4.8) H 01/30/21 02:50 Lymph # (Auto) 0.3 X10^3/uL (1.3-2.9) L 01/30/21 02:50 [place] # (Auto) 0.4 x10^3/uL (0.3-0.8) 01/30/21 02:50 Eos # (Auto) 0.0 x10^3/uL (0.0-0.2) 01/30/21 02:50 Baso # (Auto) 0.1 X10^3/uL (0.0-0.1) 01/30/21 02:50 Absolute Nucleated RBC 0.0 /100WBC 01/30/21 02:50 Total Counted 100 01/30/21 02:50 Neutrophils % (Manual) 87 % (39-76) H 01/30/21 02:50 Band Neutrophils % 3 % (0-10) 01/30/21 02:50 Lymphocytes % (Manual) 8 % (13-43) L 01/30/21 02:50 Monocytes % (Manual) 2 % (4-9) L 01/30/21 02:50 Plt Morphology Comment Normal (NORMAL) 01/30/21 02:50 RBC Morphology Normal (NORMAL) 01/30/21 02:50 PT 16.1 SECONDS (11.8-14.3) 01/28/21 04:40 INR Target Range - 01/28/21 04:40 INR 1.35 (0.8-1.3) H 01/28/21 04:40 APTT 93.3 SECONDS (22.9-36.5) H 01/30/21 10:30 PTT Comment - 01/30/21 10:30 D-Dimer > 20.00 ug/ml (0.0-0.57) H* 01/27/21 19:20 Sample Site Rrad 01/30/21 05:37 ABG pH 7.400 (7.35-7.45) 01/30/21 05:37 ABG pCO2 41.0 mmHg (35.0-45.0) 01/30/21 05:37 ABG pO2 100.0 mmHg (80.0-100.0) 01/30/21 05:37 ABG HCO3 25.4 mmol/L (22-26) 01/30/21 05:37 ABG O2 Saturation 98.0 % (90-100) 01/30/21 05:37 ABG Base Excess 0.5 mmol/L (-2.0-2.0) 01/30/21 05:37 Ted Test Pos 01/30/21 05:37 A-a Gradient 419.0 mmHg 01/30/21 05:37 FiO2 80.0 01/30/21 05:37 Blood Gas Comments [place] abg well-mtf 01/30/21 05:37 Sodium 137 mmol/L (136-145) 01/30/21 02:50 Corrected Sodium 140 mmol/L (136-145) 01/30/21 02:50 Potassium 3.9 mmol/L (3.5-5.1) 01/30/21 02:50 Chloride 101 mmol/L (98-107) 01/30/21 02:50 Carbon Dioxide 29.9 mmol/L (21-32) 01/30/21 02:50 BUN 31 mg/dL (7-18) H 01/30/21 02:50 Creatinine 1.42 mg/dL (0.70-1.30) H 01/30/21 02:50 Est GFR (MDRD) Af Amer > 60 (>60) 01/30/21 02:50 Est GFR (MDRD) Non-Af 51 (>60) L 01/30/21 02:50 Glucose 235 mg/dL (65-99) H 01/30/21 02:50 Lactic Acid 1.9 mmol/L (0.4-2.0) 01/28/21 10:49 Calcium 7.8 mg/dL (8.5-10.1) L 01/30/21 02:50 Corrected Calcium 9.6 mg/dL (8.5-10.1) 01/30/21 02:50 Magnesium 2.1 mg/dL (1.7-2.9) 01/29/21 21:44 Total Bilirubin 0.50 mg/dL (0.2-1.0) 01/30/21 02:50 AST 19 Units/L (15-37) 01/30/21 02:50 ALT 20 Units/L (12-78) 01/30/21 02:50 Alkaline Phosphatase 78 Units/L (46-116) 01/30/21 02:50 Creatine Kinase 47 Units/L (39-308) 01/27/21 19:20 CK-MB (CK-2) 2.0 ng/mL (0-4.0) 01/27/21 19:20 CK/CKMB % Calc 4.3 % (<4) 01/27/21 19:20 Troponin I 0.04 ng/mL (0-1.5) 01/27/21 19:20 C-Reactive Protein 122.90 mg/L (0-3.0) H 01/30/21 02:50 B-Natriuretic Peptide 42.7 pg/mL (0-79) 01/30/21 02:50 Total Protein 5.9 g/dL (6.4-8.2) L 01/30/21 02:50 Albumin 1.8 g/dL (3.4-5.0) L 01/30/21 02:50 Globulin 4.1 g/dL (2.5-4.5) 01/30/21 02:50 Albumin/Globulin Ratio 0.4 Ratio (1.1-2.1) L 01/30/21 02:50 Specimen Type Catherized urine 01/28/21 19:58 Urine Color Dark yellow (YELLOW) 01/28/21 19:58 Urine Appearance Clear (CLEAR) 01/28/21 19:58 Urine pH 5.0 (5.0 - 8.0) 01/28/21 19:58 Ur Specific [place] 1.015 (1.000-1.030) 01/28/21 19:58 Urine Protein 2+ (NEGATIVE) 01/28/21 19:58 Urine Glucose (UA) Negative (NEGATIVE) 01/28/21 19:58 Urine Ketones Negative (NEGATIVE) 01/28/21 19:58 Urine Occult Blood Negative (NEGATIVE) 01/28/21 19:58 Urine Nitrite Negative (NEGATIVE) 01/28/21 19:58 Urine Bilirubin Negative (NEGATIVE) 01/28/21 19:58 Urine Urobilinogen 2+ (NORMAL) 01/28/21 19:58 Ur Leukocyte Esterase Negative (NEGATIVE) 01/28/21 19:58 Urine RBC 0-2 /HPF (0-3) 01/28/21 19:58 Urine WBC 0-2 /HPF (0-5) 01/28/21 19:58 Ur Squamous Epith Cells Rare /HPF (NEGATIVE) 01/28/21 19:58 Ur Transition Epith Cell Few /HPF (NEGATIVE) 01/28/21 19:58 Urine Bacteria 1+ /HPF (NEGATIVE) 01/28/21 19:58 Hyaline Casts Few /LPF (NEGATIVE) 01/28/21 19:58 Ur Culture Indicated? No/not indicated 01/28/21 19:58 - Plan (1) Pulmonary embolism Status: Acute Qualifiers: Pulmonary embolism type: unspecified Chronicity: acute Acute cor pulmonale presence: unspecified Qualified Code(s): I26.99 - Other pulmonary embolism without acute cor pulmonale Plan: SUPPLEMENTAL OXYGEN, NORMAL SALINE AT 75 ML/HR, REMDESIVIR 100MG IV DAILY, AND SOLU-MEDROL 125MG IV Q6H, ZOSYN 3.375G IV TID, ALBUTEROL NEBS TID, PULMICORT NEBS BID, HEPARIN IV DRIP, PROTONIX 40MG IV BID, PERCOCET 5/325 1.5 TAB PO Q6H PRN, ROBITUSSIN DM 10ML PO Q4H PRN, SYNTHROID 75MCG PO DAILY, ZESTRIL 5MG PO DAILY, THE POTASSIUM AND MAGNESIUM PROTOCOL. (2) Pneumonia due to COVID-19 virus Status: Acute (3) COVID-19 virus infection Status: Acute (4) Hypoxia Status: Acute
[2021-01-30] MEDS: HEPARIN SODIUM IN D5W 25,000 UNITS/500 ML BAG IV PRN (13:10)
[2021-01-30] MEDS: KLONOPIN TAB 0.5 MG PO PRN (20:30)
[2021-01-31] MEDS: SOLU-Medrol 125 MG VIAL IVP SCH ×4 (02:44→21:45)
[2021-01-31] MEDS: PERCOCET TAB 5/325 MG PO PRN ×2 (02:44→21:50)
[2021-01-31 05:27] LABS: ABG ALLEN TEST POS; ABG BASE EXCESS 3.3 mmol/L (-2.0-2.0); ABG HCO3 27.8 mmol/L (22-26)
[2021-01-31] MEDS ORDERED: APRESOLINE INJ 20 MG VIAL IVP ONE (05:27)
[2021-01-31] MEDS: NEURONTIN CAP 400 MG PO SCH ×3 (05:39→21:38)
[2021-01-31] MEDS: NS 1000 ML 1,000 ML IV SCH ×3 (05:39→22:30)
[2021-01-31 05:52] LABS: BASOPHILS % (AUTO) 0 % (0.2-1.0); LYMPHOCYTES # (AUTO) 0.3 X10^3/uL (1.3-2.9); MONOCYTES # (AUTO) 0.7 x10^3/uL (0.3-0.8)
[2021-01-31] MEDS: ACCUNEB 1.25 MG NEBULE NEB SCH (05:57)
[2021-01-31] MEDS: ZOSYN VIAL 3.375 GRAMS 3.375 G in NS 100 ML IV + SPIKE MINIBAG* 100 ML IV SCH (05:59)
[2021-01-31 06:08] LABS: ALANINE AMINOTRANSFERASE 18 Units/L (12-78); ALBUMIN 1.7 g/dL (3.4-5.0); ALKALINE PHOSPHATASE 103 Units/L (46-116); ASPARTATE AMINO TRANSFERASE 23 Units/L (15-37); BLOOD UREA NITROGEN 27 mg/dL (7-18); CALCIUM 7.8 mg/dL (8.5-10.1); CARBON DIOXIDE 26.5 mmol/L (21-32); CHLORIDE 104 mmol/L (98-107); COR CA(FOR HYPOALB) 9.6 mg/dL (8.5-10.1); COR NA(FOR HYPERGLY) 142 mmol/L (136-145); CREATININE 1.13 mg/dL (0.70-1.30); SODIUM 139 mmol/L (136-145); TOTAL PROTEIN 5.8 g/dL (6.4-8.2); eGFR NON BLACK RACES > 60 (>60)
[2021-01-31 06:09] LABS: HEMATOCRIT 34.7 % (42.0-54.0); HEMOGLOBIN 11.8 g/dL (13.5-18.0); LYMPHOCYTES % (AUTO) 1.5 % (21.0-51.0); MEAN CORPUSCULAR VOLUME 88.2 fL (80.0-100.0); MEAN PLATELET VOLUME 8.1 fL (7.4-11.0); MONOCYTES % (AUTO) 3.6 % (0.0-13.0); NEUTROPHILS # (AUTO) 17.9 x10^3/uL (2.2-4.8); NEUTROPHILS % (AUTO) 94.9 % (42.0-75.0); PLATELET COUNT 298 X10^3/uL (150.0-450.0); RED BLOOD COUNT 3.93 X10^6/uL (4.7-6.0); RED CELL DISTRIBUTION WIDTH 14.4 % (11.6-16.5); WHITE BLOOD COUNT 18.9 X10^3/uL (3.6-10.0)
[2021-01-31 06:17] LABS: PLATELET MORPHOLOGY COMMENT NORMAL (NORMAL)
--- NOTE | 2021-01-31 06:44 | RAD ---
HISTORYSOB, COVID+STUDYCHEST, 1 [id number]/14/2021.TECHNIQUEAP view of the chestFINDINGSCardiac and mediastinal contours are within normal limits. No significant change in bilateral airspace and interstitial opacities. No definite pleural effusion or pneumothorax.IMPRESSIONNo significant change.Electronically signed by: Jose Francisco Boone (Jan 31, 2021 06:42:26)
[2021-01-31] MEDS ORDERED: MORPHINE SULFATE INJ 2 MG INJ IVP ONE (07:02)
[2021-01-31] MEDS ORDERED: MORPHINE SULFATE INJ 2 MG INJ ONE (07:06)
[2021-01-31] MEDS: HEPARIN SODIUM IN D5W 25,000 UNITS/500 ML BAG IV PRN (07:36)
[2021-01-31] MEDS: PROTONIX INJ 40 MG VIAL IVP SCH ×2 (08:21→21:47)
[2021-01-31] MEDS: PEPCID 20 MG IV PREMIX* 20 MG/50 ML BAG IV SCH ×2 (08:24→22:10)
[2021-01-31] MEDS: PULMICORT NEB TX 0.5 MG NEB SCH (08:45)
[2021-01-31] MEDS: VALIUM INJ IVP PRN ×3 (09:34→18:23)
[2021-01-31] MEDS ORDERED: REMDESIVIR IV ONE (10:07)
[2021-01-31] MEDS: REMDESIVIR 100 MG in NS 100 ML IV + SPIKE MINIBAG* 120 ML IV SCH (10:19)
[2021-01-31] MEDS: MORPHINE SULFATE INJ 2 MG INJ IVP PRN ×2 (12:15→16:13)
[2021-01-31] MEDS: K-RIDER 10 MEQ/NS 100 ML 10 MEQ/100 ML BAG IV PRN ×2 (14:00→16:59)
[2021-01-31] MEDS: ZOSYN VIAL 3.375 GRAMS 3.375 G in NS 50 ML IV + SPIKE MINIBAG* 50 ML IV SCH ×2 (15:28→22:20)
[2021-01-31] MEDS: SYNTHROID 75 mcg TAB PO SCH ×2 (15:40→16:00)
[2021-01-31] MEDS: IVERMECTIN PO SCH ×2 (15:40→16:00)
[2021-01-31] MEDS: ZESTRIL TAB 10 MG PO SCH (15:41)
[2021-01-31] MEDS: CATAPRES-TTS-2 TD SCH (18:23)
[2021-01-31] MEDS: COLACE CAP 100 MG PO SCH (21:40)
[2021-01-31] MEDS: ROBITUSSIN DM PO PRN (21:42)
[2021-01-31] MEDS ORDERED: HEPARIN SODIUM INJ 5000 UNITS IVP ONE (22:45)
[2021-02-01] MEDS: MORPHINE SULFATE INJ 2 MG INJ IVP PRN ×4 (01:38→19:54)
[2021-02-01] MEDS: SOLU-Medrol 125 MG VIAL IVP SCH ×4 (03:24→20:29)
[2021-02-01] MEDS: HEPARIN SODIUM IN D5W 25,000 UNITS/500 ML BAG IV PRN ×2 (03:58→21:56)
[2021-02-01] MEDS: VALIUM INJ IVP PRN ×3 (05:55→19:55)
[2021-02-01] MEDS: NEURONTIN CAP 400 MG PO SCH ×3 (06:08→22:09)
--- NOTE | 2021-02-01 06:13 | RAD ---
HISTORYSOB, COVID+STUDYCHEST, 1 VIEWCOMPARISONOne day prior.TECHNIQUEAP view of the chestFINDINGSCardiac and mediastinal contours are within normal limits. No significant change in bilateral airspace and interstitial opacities. There is a small right apical pneumothorax that measures approximately 8 mm of pleural separation. No new pleural effusion.IMPRESSIONDevelopment of small right apical pneumothorax. Stable COVID 19 pneumonia.Electronically signed by: Jose Francisco Boone (Feb 01, 2021 06:11:51)
[2021-02-01] MEDS ORDERED: HALDOL INJ ONE (06:33)
[2021-02-01] MEDS ORDERED: HALDOL INJ IVP SCH (06:35)
[2021-02-01] MEDS: ZOSYN VIAL 3.375 GRAMS 3.375 G in NS 50 ML IV + SPIKE MINIBAG* 50 ML IV SCH ×3 (06:51→20:30)
[2021-02-01] MEDS: NS 1000 ML 1,000 ML IV SCH ×2 (07:06→13:19)
[2021-02-01] MEDS ORDERED: HALDOL INJ IVP PRN (07:09)
[2021-02-01] MEDS: ACCUNEB 1.25 MG NEBULE NEB SCH ×3 (08:00→21:17)
[2021-02-01] MEDS: PULMICORT NEB TX 0.5 MG NEB SCH ×2 (08:00→21:17)
[2021-02-01] MEDS ORDERED: GEODON INJ IM ONE ×2 (08:11→08:15)
--- NOTE | 2021-02-01 08:44 | PCM.PROG ---
Progress Note - Progress Note for Day of Date of Exam: 01/31/21 - Subjective Subjective: IS A 75 YEAR OLD PATIENT OF OURS. HE WAS ADMITTED TO THE HOSPITAL ON 01/27/2021 FOR TREATMENT OF PULMONARY EMBOLISM, HYPOXIA, COVID-19, COVID PNEUMONIA. HIS PMH INCLUDES: HTN, HYPOTHYROIDISM, HX COLON CANCER, APPENDECTOMY, SPINAL SURGERY, HERNIA REPAIR, COLON RESECTION. PATIENT REPORTS BEING DIAGNOSED WITH COVID JUST OVER TWO WEEKS AGO. TODAY, PATIENT IS ALERT, LYING IN BED ON MORNING ROUNDS. HE DOES APPEAR TO BE ANXIOUS THIS MORNING. FAMILY REPORTS THAT HE DID NOT REST WELL THROUGHOUT THE NIGHT. NURSING STAFF REPORTS THAT HE HAS NOT TOLERATED THE BIPAP WELL AND HAS ATTEMPTED TO REMOVE IT SEVERAL TIMES. HE IS CURRENTLY ON THE BIPAP. SATURATIONS HAVE BEEN 86-95% THIS MORNING AND THROUGHOUT THE NIGHT. WHEN BIPAP IS REMOVED, SATURATIONS DO DROP TO THE 70s PER NURSING STAFF. ON EXAMINATION, HEART IS REGULAR IN RATE AND RHYTHM. BILATERAL LUNGS ARE NOTED WITH DIMINISHED LUNG SOUNDS THROUGHOUT. ABDOMEN IS ROUND, SOFT, AND NON-TENDER WITH NORMAL BOWEL SOUNDS NOTED IN ALL QUADRANTS. HIS VITALS THIS MORNING ARE: 97.0-70-29-92%-146/70. LABS WERE OBTAINED. ABNORMAL LAB VALUES INCLUDE THE FOLLOWING: WBC 18.9, RBC 3.96, HGB 11.8, HCT 34.7, SODIUM 139, POTASSIUM 3.5, BUN 27, CREATININE 1.13, GLUCOSE 233, CALCIUM 7.8, CRP 51.70, BNP 275, TOTAL PROTEIN 5.8, ALBUMIN 1.7. ABG REVEALED: PH 7.440, PC02 41, P02 54, HC03 27.8, 02 SAT 89, BASE EXCESS 3.3, A-A GRADIENT 394, FI02 70. BLOOD CULTURES ARE PENDING. CHEST XRAY WAS OBTAINED AND REVEALED: Cardiac and mediastinal contours are within normal limits. No significant change in bilateral airspace and interstitial opacities. No definite pleural effusion or pneumothorax. HE IS CURRENTLY RECEIVING NORMAL SALINE AT 75 ML/HR, REMDESIVIR 100MG IV DAILY, SOLU-MEDROL 125MG IV Q6H, ZOSYN 3.375G IV TID, ALBUTEROL NEBS TID, PULMICORT NEBS BID, HEPARIN IV DRIP, PROTONIX 40MG IV BID, PEPCID 20MG IV Q12H, PERCOCET 5/325 1.5 TAB PO Q6H PRN, ROBITUSSIN DM 10ML PO Q4H PRN, SYNTHROID 75MCG PO DAILY, ZESTRIL 5MG PO DAILY, THE POTASSIUM AND MAGNESIUM PROTOCOL. TODAY, WE WILL ADD VALIUM 1MG IV Q4H PRN. OTHERWISE, WE PLAN TO FOLLOW UP WITH AM LABS AND CHEST XRAY AND CONTINUE TO MONITOR. TIME SPENT ON CLINICAL ASSESSMENT, REVIEWING LABS AND IMAGING, DECISION MAKING, AND DOCUMENTATION GREATER THAN 45 MINUTES. - Past Medical Family Social History Past Med/Fam/Surg Hx: No changes since H&P Allergies: Allergies lorazepam [From Ativan] Allergy (Verified 01/27/21 19:36) morphine Adverse Reaction (Verified 01/15/20 12:20) nifedipine Adverse Reaction (Verified 01/15/20 12:20) MUSCLE RELAXERS Adverse Reaction (Uncoded 01/15/20 12:20) - Review of Systems ROS: No change since H&P - Vital Signs and I&O's Vital Signs: Temperature 97.6 F Pulse Rate [Left] 71 Pulse Rate 93 Respiratory Rate 35 Blood Pressure [Left Arm] 155/79 Blood Pressure 116/62 O2 Sat by Pulse Oximetry 92 Intake and Output: Intake & Output 01/29/21 01/30/21 01/31/21 02/01/21 11:59 11:59 11:59 11:59 Intake Total 1890 / 1890 3563 / 3563 4745 / 4745 3412 / 3412 Output Total 400 / 400 1550 / 1550 2075 / 2075 2300 / 2300 Balance 1490 / 1490 2012 2670 / 2670 1112 / 1112 - Physical Exam Oriented: Normal Eyes: Normal Ear: Normal Nose: Normal Throat: Normal Respiratory: Generalized, Diminished Cardiovascular: Normal : Normal Auscultation: Bowel Sounds: Normal Palpation: Normal Tenderness: Normal Skin: Decreased [place] Musculoskeletal: Back:Thoracic, Back:Lumbar, Motor Deficit Psychiatric: Anxiety Affect: Anxious Speech Pattern: Clear, Appropriate - Laboratory and Diagnostics Result Diagrams: 01/31/21 05:38 01/31/21 05:38 Labs: 01/28/21 11:00 Blood Blood Culture - Preliminary 01/28/21 10:49 Blood Blood Culture - Preliminary Laboratory WBC 18.9 X10^3/uL (3.6-10.0) H 01/31/21 05:38 RBC 3.93 X10^6/uL (4.7-6.0) L 01/31/21 05:38 Hgb 11.8 g/dL (13.5-18.0) L 01/31/21 05:38 Hct 34.7 % (42.0-54.0) L 01/31/21 05:38 MCV 88.2 fL (80.0-100.0) 01/31/21 05:38 MCH 30.0 pg (27.0-34.0) 01/31/21 05:38 MCHC 34.0 g/dL (33.0-35.0) 01/31/21 05:38 RDW 14.4 % (11.6-16.5) 01/31/21 05:38 Plt Count 298 X10^3/uL (150.0-450.0) 01/31/21 05:38 Plt Count Comment Adequate (ADEQUATE) 01/31/21 05:38 MPV 8.1 fL (7.4-11.0) 01/31/21 05:38 Neut % (Auto) 94.9 % (42.0-75.0) H 01/31/21 05:38 Lymph % (Auto) 1.5 % (21.0-51.0) L 01/31/21 05:38 [place] % (Auto) 3.6 % (0.0-13.0) 01/31/21 05:38 Eos % (Auto) 0.0 % (0.9-2.9) L 01/31/21 05:38 Baso % (Auto) 0 % (0.2-1.0) L 01/31/21 05:38 Neut # (Auto) 17.9 x10^3/uL (2.2-4.8) H 01/31/21 05:38 Lymph # (Auto) 0.3 X10^3/uL (1.3-2.9) L 01/31/21 05:38 [place] # (Auto) 0.7 x10^3/uL (0.3-0.8) 01/31/21 05:38 Eos # (Auto) 0.0 x10^3/uL (0.0-0.2) 01/31/21 05:38 Baso # (Auto) 0.0 X10^3/uL (0.0-0.1) 01/31/21 05:38 Absolute Nucleated RBC 0.0 /100WBC 01/31/21 05:38 Total Counted 100 01/31/21 05:38 Neutrophils % (Manual) 98 % (39-76) H 01/31/21 05:38 Band Neutrophils % 3 % (0-10) 01/30/21 02:50 Lymphocytes % (Manual) 1 % (13-43) L 01/31/21 05:38 Monocytes % (Manual) 1 % (4-9) L 01/31/21 05:38 Plt Morphology Comment Normal (NORMAL) 01/31/21 05:38 RBC Morphology Normal (NORMAL) 01/31/21 05:38 PT 16.1 SECONDS (11.8-14.3) 01/28/21 04:40 INR Target Range - 01/28/21 04:40 INR 1.35 (0.8-1.3) H 01/28/21 04:40 APTT 58.1 SECONDS (22.9-36.5) H 01/31/21 20:46 PTT Comment - 01/31/21 20:46 D-Dimer > 20.00 ug/ml (0.0-0.57) H* 01/27/21 19:20 Sample Site Rrad 01/31/21 05:25 ABG pH 7.440 (7.35-7.45) 01/31/21 05:25 ABG pCO2 41.0 mmHg (35.0-45.0) 01/31/21 05:25 ABG pO2 54.0 mmHg (80.0-100.0) L 01/31/21 05:25 ABG HCO3 27.8 mmol/L (22-26) H 01/31/21 05:25 ABG O2 Saturation 89.0 % (90-100) L 01/31/21 05:25 ABG Base Excess 3.3 mmol/L (-2.0-2.0) H 01/31/21 05:25 Ted Test Pos 01/31/21 05:25 A-a Gradient 394.0 mmHg 01/31/21 05:25 FiO2 70.0 01/31/21 05:25 Blood Gas Comments [place] well party chief/mts 01/31/21 05:25 Sodium 139 mmol/L (136-145) 01/31/21 05:38 Corrected Sodium 142 mmol/L (136-145) 01/31/21 05:38 Potassium 3.5 mmol/L (3.5-5.1) 01/31/21 05:38 Chloride 104 mmol/L (98-107) 01/31/21 05:38 Carbon Dioxide 26.5 mmol/L (21-32) 01/31/21 05:38 BUN 27 mg/dL (7-18) H 01/31/21 05:38 Creatinine 1.13 mg/dL (0.70-1.30) 01/31/21 05:38 Est GFR (MDRD) Af Amer > 60 (>60) 01/31/21 05:38 Est GFR (MDRD) Non-Af > 60 (>60) 01/31/21 05:38 Glucose 233 mg/dL (65-99) H 01/31/21 05:38 Lactic Acid 1.9 mmol/L (0.4-2.0) 01/28/21 10:49 Calcium 7.8 mg/dL (8.5-10.1) L 01/31/21 05:38 Corrected Calcium 9.6 mg/dL (8.5-10.1) 01/31/21 05:38 Magnesium 2.1 mg/dL (1.7-2.9) 01/29/21 21:44 Total Bilirubin 0.40 mg/dL (0.2-1.0) 01/31/21 05:38 AST 23 Units/L (15-37) 01/31/21 05:38 ALT 18 Units/L (12-78) 01/31/21 05:38 Alkaline Phosphatase 103 Units/L (46-116) 01/31/21 05:38 Creatine Kinase 47 Units/L (39-308) 01/27/21 19:20 CK-MB (CK-2) 2.0 ng/mL (0-4.0) 01/27/21 19:20 CK/CKMB % Calc 4.3 % (<4) 01/27/21 19:20 Troponin I 0.04 ng/mL (0-1.5) 01/27/21 19:20 C-Reactive Protein 51.70 mg/L (0-3.0) H 01/31/21 05:38 B-Natriuretic Peptide 275 pg/mL (0-79) H 01/31/21 05:38 Total Protein 5.8 g/dL (6.4-8.2) L 01/31/21 05:38 Albumin 1.7 g/dL (3.4-5.0) L 01/31/21 05:38 Globulin 4.1 g/dL (2.5-4.5) 01/31/21 05:38 Albumin/Globulin Ratio 0.4 Ratio (1.1-2.1) L 01/31/21 05:38 Specimen Type Catherized urine 01/28/21 19:58 Urine Color Dark yellow (YELLOW) 01/28/21 19:58 Urine Appearance Clear (CLEAR) 01/28/21 19:58 Urine pH 5.0 (5.0 - 8.0) 01/28/21 19:58 Ur Specific [place] 1.015 (1.000-1.030) 01/28/21 19:58 Urine Protein 2+ (NEGATIVE) 01/28/21 19:58 Urine Glucose (UA) Negative (NEGATIVE) 01/28/21 19:58 Urine Ketones Negative (NEGATIVE) 01/28/21 19:58 Urine Occult Blood Negative (NEGATIVE) 01/28/21 19:58 Urine Nitrite Negative (NEGATIVE) 01/28/21 19:58 Urine Bilirubin Negative (NEGATIVE) 01/28/21 19:58 Urine Urobilinogen 2+ (NORMAL) 01/28/21 19:58 Ur Leukocyte Esterase Negative (NEGATIVE) 01/28/21 19:58 Urine RBC 0-2 /HPF (0-3) 01/28/21 19:58 Urine WBC 0-2 /HPF (0-5) 01/28/21 19:58 Ur Squamous Epith Cells Rare /HPF (NEGATIVE) 01/28/21 19:58 Ur Transition Epith Cell Few /HPF (NEGATIVE) 01/28/21 19:58 Urine Bacteria 1+ /HPF (NEGATIVE) 01/28/21 19:58 Hyaline Casts Few /LPF (NEGATIVE) 01/28/21 19:58 Ur Culture Indicated? No/not indicated 01/28/21 19:58 - Plan (1) Pulmonary embolism Status: Acute Qualifiers: Pulmonary embolism type: unspecified Chronicity: acute Acute cor pulmonale presence: unspecified Qualified Code(s): I26.99 - Other pulmonary embolism without acute cor pulmonale Plan: SUPPLEMENTAL OXYGEN, NORMAL SALINE AT 75 ML/HR, REMDESIVIR 100MG IV DAILY, AND SOLU-MEDROL 125MG IV Q6H, ZOSYN 3.375G IV TID, VALIUM 1MG IV Q4H PRN, ALBUTEROL NEBS TID, PULMICORT NEBS BID, HEPARIN IV DRIP, PROTONIX 40MG IV BID, PERCOCET 5/325 1.5 TAB PO Q6H PRN, ROBITUSSIN DM 10ML PO Q4H PRN, SYNTHROID 75M CG PO DAILY, ZESTRIL 5MG PO DAILY, THE POTASSIUM AND MAGNESIUM PROTOCOL. (2) Pneumonia due to COVID-19 virus Status: Acute (3) COVID-19 virus infection Status: Acute (4) Hypoxia Status: Acute
[2021-02-01] MEDS ORDERED: GEODON INJ IM NR (09:00)
[2021-02-01 09:25] LABS: BASOPHILS % (AUTO) 0.2 % (0.2-1.0); HEMATOCRIT 34.3 % (42.0-54.0); HEMOGLOBIN 11.2 g/dL (13.5-18.0); LYMPHOCYTES # (AUTO) 0.1 X10^3/uL (1.3-2.9); LYMPHOCYTES % (AUTO) 0.5 % (21.0-51.0); MEAN CORPUSCULAR HEMOGLOBIN 29.4 pg (27.0-34.0); MEAN CORPUSCULAR HGB CONC 32.7 g/dL (33.0-35.0); MEAN CORPUSCULAR VOLUME 89.7 fL (80.0-100.0); MEAN PLATELET VOLUME 7.9 fL (7.4-11.0); MONOCYTES % (AUTO) 4.7 % (0.0-13.0); NEUTROPHILS # (AUTO) 20.3 x10^3/uL (2.2-4.8); NEUTROPHILS % (AUTO) 94.6 % (42.0-75.0); PLATELET COUNT 300 X10^3/uL (150.0-450.0); RED BLOOD COUNT 3.82 X10^6/uL (4.7-6.0); RED CELL DISTRIBUTION WIDTH 14.3 % (11.6-16.5); WHITE BLOOD COUNT 21.4 X10^3/uL (3.6-10.0)
[2021-02-01 09:52] LABS: ABG BASE EXCESS 4.7 mmol/L (-2.0-2.0); ABG HCO3 28.2 mmol/L (22-26)
[2021-02-01 09:54] LABS: ALANINE AMINOTRANSFERASE 16 Units/L (12-78); ALBUMIN 1.9 g/dL (3.4-5.0); ALKALINE PHOSPHATASE 123 Units/L (46-116); ASPARTATE AMINO TRANSFERASE 28 Units/L (15-37); BLOOD UREA NITROGEN 33 mg/dL (7-18); CARBON DIOXIDE 25.8 mmol/L (21-32); CHLORIDE 107 mmol/L (98-107); COR CA(FOR HYPOALB) 9.7 mg/dL (8.5-10.1); COR NA(FOR HYPERGLY) 145 mmol/L (136-145); CREATININE 1.14 mg/dL (0.70-1.30); SODIUM 143 mmol/L (136-145); TOTAL PROTEIN 5.6 g/dL (6.4-8.2); eGFR NON BLACK RACES > 60 (>60)
[2021-02-01 09:58] LABS: PLATELET MORPHOLOGY COMMENT NORMAL (NORMAL)
[2021-02-01 09:59] LABS: BURR CELLS SLIGHT; TEAR DROP CELLS SLIGHT
[2021-02-01] MEDS ORDERED: PHARMACY CONSULT - TPN XX SCH (10:00)
[2021-02-01] MEDS: PEPCID 20 MG IV PREMIX* 20 MG/50 ML BAG IV SCH ×2 (11:03→20:28)
[2021-02-01] MEDS: PROTONIX INJ 40 MG VIAL IVP SCH ×2 (11:03→20:29)
[2021-02-01] MEDS: ALBUMIN HUMAN 25%- 100 ML 100 ML IV SCH (11:03)
[2021-02-01] MEDS: REMDESIVIR 100 MG in NS 100 ML IV + SPIKE MINIBAG* 120 ML IV SCH (11:04)
[2021-02-01] MEDS: CATAPRES-TTS-2 TD SCH (11:05)
[2021-02-01] MEDS: IVERMECTIN PO SCH (13:09)
[2021-02-01] MEDS: SYNTHROID 75 mcg TAB PO SCH (13:09)
[2021-02-01] MEDS: ZESTRIL TAB 10 MG PO SCH (13:09)
[2021-02-01] MEDS: MVI IV SCH ×4 (13:19)
[2021-02-01] MEDS: HUMULIN R IV SCH ×4 (13:19)
[2021-02-01] MEDS: [UNRECOGNIZED DRUG - OTHER] IV SCH ×4 (13:19)
[2021-02-01] MEDS: CLINIMIX IV SCH ×4 (13:19)
[2021-02-01] MEDS: APRESOLINE INJ 20 MG VIAL IVP PRN (15:56)
[2021-02-01] MEDS: GEODON INJ IM PRN ×2 (15:56→21:00)
[2021-02-01] MEDS ORDERED: CATAPRES-TTS-3 TD SCH (16:00)
[2021-02-01 19:17] LABS: ABG ALLEN TEST POS
[2021-02-01] MEDS: COLACE CAP 100 MG PO SCH (22:09)
[2021-02-01] MEDS: PRECEDEX 400 MCG/100 ML PREMIX 400 MCG/100 ML INFUS..BTL IV PRN (22:11)
[2021-02-02] MEDS: NS 1000 ML 1,000 ML IV SCH ×2 (00:01→10:53)
[2021-02-02] MEDS: K-RIDER 10 MEQ/NS 100 ML 10 MEQ/100 ML BAG IV PRN ×4 (01:09→06:11)
[2021-02-02] MEDS: PRECEDEX 400 MCG/100 ML PREMIX 400 MCG/100 ML INFUS..BTL IV PRN ×2 (02:01→08:12)
[2021-02-02] MEDS: SOLU-Medrol 125 MG VIAL IVP SCH ×4 (02:23→20:44)
[2021-02-02] MEDS: ZOSYN VIAL 3.375 GRAMS 3.375 G in NS 50 ML IV + SPIKE MINIBAG* 50 ML IV SCH ×4 (02:24→20:45)
[2021-02-02] MEDS: MORPHINE SULFATE INJ 2 MG INJ IVP PRN ×4 (02:46→18:38)
[2021-02-02] MEDS: VALIUM INJ IVP PRN (03:10)
--- NOTE | 2021-02-02 04:12 | RAD ---
STUDY: FRONTAL VIEW CHESTCOMPARISON: 02/01/2021HISTORY: DECREASED BREATH SOUNDS ON RT SIDEFINDINGS:Diffuse alveolar airspace disease is seen in the bilateral mid and lower lung zonesThe heart size is within normal limits.The mediastinum is unremarkable.There is no evidence of pleural effusion or gross pneumothorax.The trachea is midline.IMPRESSION:Diffuse alveolar airspace disease is seen in the bilateral mid and lower lung zones.Electronically signed by: Juan Diego Malin (Feb 02, 2021 04:10:05)
[2021-02-02 05:09] LABS: ABG BASE EXCESS 7.3 mmol/L (-2.0-2.0); ABG HCO3 29.3 mmol/L (22-26)
[2021-02-02 05:11] LABS: ABG ALLEN TEST POS
[2021-02-02] MEDS: NEURONTIN CAP 400 MG PO SCH ×3 (05:53→22:05)
[2021-02-02] MEDS: ACCUNEB 1.25 MG NEBULE NEB SCH ×4 (05:55→21:30)
[2021-02-02] MEDS: APRESOLINE INJ 20 MG VIAL IVP PRN ×2 (06:00→14:12)
[2021-02-02] MEDS: PULMICORT NEB TX 0.5 MG NEB SCH ×2 (08:15→21:30)
[2021-02-02 08:49] LABS: BASOPHILS % (AUTO) 0.1 % (0.2-1.0); HEMATOCRIT 37.6 % (42.0-54.0); HEMOGLOBIN 12.2 g/dL (13.5-18.0); LYMPHOCYTES # (AUTO) 0.2 X10^3/uL (1.3-2.9); LYMPHOCYTES % (AUTO) 1.1 % (21.0-51.0); MEAN CORPUSCULAR HEMOGLOBIN 29.2 pg (27.0-34.0); MEAN CORPUSCULAR HGB CONC 32.5 g/dL (33.0-35.0); MEAN CORPUSCULAR VOLUME 89.6 fL (80.0-100.0); MEAN PLATELET VOLUME 8.3 fL (7.4-11.0); MONOCYTES # (AUTO) 0.6 x10^3/uL (0.3-0.8); MONOCYTES % (AUTO) 3.4 % (0.0-13.0); NEUTROPHILS # (AUTO) 17.8 x10^3/uL (2.2-4.8); NEUTROPHILS % (AUTO) 95.4 % (42.0-75.0); PLATELET COUNT 270 X10^3/uL (150.0-450.0); RED CELL DISTRIBUTION WIDTH 14.8 % (11.6-16.5); WHITE BLOOD COUNT 18.6 X10^3/uL (3.6-10.0)
[2021-02-02 09:01] LABS: ALANINE AMINOTRANSFERASE 17 Units/L (12-78); ALBUMIN 2.3 g/dL (3.4-5.0); ALKALINE PHOSPHATASE 163 Units/L (46-116); ASPARTATE AMINO TRANSFERASE 25 Units/L (15-37); BLOOD UREA NITROGEN 33 mg/dL (7-18); CALCIUM 8.2 mg/dL (8.5-10.1); CARBON DIOXIDE 27.8 mmol/L (21-32); CHLORIDE 109 mmol/L (98-107); COR CA(FOR HYPOALB) 9.6 mg/dL (8.5-10.1); COR NA(FOR HYPERGLY) 150 mmol/L (136-145); CREATININE 1.18 mg/dL (0.70-1.30); SODIUM 147 mmol/L (136-145); TOTAL PROTEIN 6.2 g/dL (6.4-8.2); eGFR NON BLACK RACES > 60 (>60)
[2021-02-02] MEDS: CLINIMIX IV SCH ×4 (09:11)
[2021-02-02] MEDS: MVI IV SCH ×4 (09:11)
[2021-02-02] MEDS: HUMULIN R IV SCH ×4 (09:11)
[2021-02-02] MEDS: ALBUMIN HUMAN 25%- 100 ML 100 ML IV SCH (09:11)
[2021-02-02] MEDS: [UNRECOGNIZED DRUG - OTHER] IV SCH ×4 (09:11)
[2021-02-02] MEDS: SYNTHROID 75 mcg TAB PO SCH (09:12)
[2021-02-02] MEDS: ZESTRIL TAB 10 MG PO SCH (09:12)
[2021-02-02] MEDS: IVERMECTIN PO SCH (09:12)
[2021-02-02] MEDS: PROTONIX INJ 40 MG VIAL IVP SCH ×2 (09:12→20:44)
[2021-02-02] MEDS: PEPCID 20 MG IV PREMIX* 20 MG/50 ML BAG IV SCH ×2 (09:12→20:43)
[2021-02-02] MEDS: REMDESIVIR 100 MG in NS 100 ML IV + SPIKE MINIBAG* 120 ML IV SCH (09:12)
[2021-02-02 09:21] LABS: PREALBUMIN 13.5 mg/dL (18-35.7)
[2021-02-02 09:40] LABS: PLATELET MORPHOLOGY COMMENT NORMAL (NORMAL)
[2021-02-02 09:41] LABS: BURR CELLS SLIGHT; TEAR DROP CELLS SLIGHT
--- NOTE | 2021-02-02 10:12 | PCM.PROG ---
Progress Note - Progress Note for Day of Date of Exam: 02/01/21 - Subjective Subjective: IS A 75 YEAR OLD PATIENT OF OURS. HE WAS ADMITTED TO THE HOSPITAL ON 01/27/2021 FOR TREATMENT OF PULMONARY EMBOLISM, HYPOXIA, COVID-19, COVID PNEUMONIA. HIS PMH INCLUDES: HTN, HYPOTHYROIDISM, HX COLON CANCER, APPENDECTOMY, SPINAL SURGERY, HERNIA REPAIR, COLON RESECTION. PATIENT REPORTS BEING DIAGNOSED WITH COVID JUST OVER TWO WEEKS AGO. TODAY, PATIENT IS LYING IN BED WITH EYES CLOSED ON MORNING ROUNDS. FAMILY REPORTS THAT HE DID NOT REST WELL THROUGHOUT THE NIGHT AND HAS BEEN VERY ANXIOUS. NURSING STAFF REPORTS THAT HE HAS NOT TOLERATED THE BIPAP WELL AND HAS ATTEMPTED TO REMOVE IT SEVERAL TIMES, DESPITE BEING GIVEN PRN MEDICATIONS FOR AGITATION. HE WAS GIVEN A DOSE OF GEODON THIS MORNING AND THIS SEEMS TO HAVE HELPED AND HE IS RESTING NOW. HE IS CURRENTLY ON THE BIPAP. SATURATIONS HAVE BEEN 86-95% THIS MORNING AND THROUGHOUT THE NIGHT. WHEN BIPAP IS REMOVED, SATURATIONS DO DROP TO THE 50s PER NURSING STAFF. ON EXAMINATION, HEART IS REGULAR IN RATE AND RHYTHM. BILATERAL LUNGS ARE NOTED WITH DIMINISHED LUNG SOUNDS THROUGHOUT. ABDOMEN IS ROUND, SOFT, AND NON- TENDER WITH NORMAL BOWEL SOUNDS NOTED IN ALL QUADRANTS. HIS VITALS THIS MORNING ARE: 98.0-93-35-92%-116/56. LABS WERE OBTAINED. ABNORMAL LAB VALUES INCLUDE THE FOLLOWING: WBC 21.4, RBC 3.82, HGB 11.2, HCT 34.3, POTASSIUM 3.1, BUN 33, GLUCOSE 189, CALCIUM 8.0, ALK PHOS 123, CRP 33.20, TOTAL PROTEIN 5.6, ALBUMIN 1.9. ABG REVEALED: PH 7.490, PC02 37, P02 48, HC03 28.2, 02 SAT 87, BASE EXCESS 4.7, A-A GRADIENT 547, FI02 90. BLOOD CULTURES ARE PENDING. CHEST XRAY WAS OBTAINED AND REVEALED: Development of small right apical pneumothorax. Stable COVID 19 pneumonia. HE IS CURRENTLY RECEIVING NORMAL SALINE AT 75 ML/HR, REMDESIVIR 100MG IV DAILY, SOLU-MEDROL 125MG IV Q6H, ZOSYN 3.375G IV TID, ALBUTEROL NEBS TID, PULMICORT NEBS BID, VALIUM 1MG IV Q4H PRN, HEPARIN IV DRIP, PROTONIX 40MG IV BID, PEPCID 20MG IV Q12H, PERCOCET 5/325 1.5 TAB PO Q6H PRN, ROBITUSSIN DM 10ML PO Q4H PRN, SYNTHROID 75MCG PO DAILY, ZESTRIL 5MG PO DAILY, THE POTASSIUM AND MAGNESIUM PROTOCOL. TODAY, WE WILL ADD GEODON 10MG BID PRN, TP N AT 60 ML/HR, AND ALBUMIN 25% IV DAILY. OTHERWISE, WE PLAN TO FOLLOW UP WITH AM LABS AND CHEST XRAY AND CONTINUE TO MONITOR. WE WILL WEAN OXYGEN HE TOLERATES IT. TIME SPENT ON CLINICAL ASSESSMENT, REVIEWING LABS AND IMAGING, DECISION MAKING, AND DOCUMENTATION GREATER THAN 45 MINUTES. - Past Medical Family Social History Past Med/Fam/Surg Hx: No changes since H&P Allergies: Allergies lorazepam [From Ativan] Allergy (Verified 01/27/21 19:36) morphine Adverse Reaction (Verified 01/15/20 12:20) nifedipine Adverse Reaction (Verified 01/15/20 12:20) MUSCLE RELAXERS Adverse Reaction (Uncoded 01/15/20 12:20) - Review of Systems ROS: No change since H&P - Vital Signs and I&O's Vital Signs: Temperature 98 F Pulse Rate [Left] 71 Pulse Rate 80 Respiratory Rate 42 Blood Pressure [Left Arm] 155/79 Blood Pressure 145/70 O2 Sat by Pulse Oximetry 84 Intake and Output: Intake & Output 01/30/21 01/31/21 02/01/21 02/02/21 11:59 11:59 11:59 11:59 Intake Total 3563 / 3563 4745 / 4745 3462 / 3462 3291 / 3291 Output Total 1550 / 1550 2075 / 2075 2300 / 2300 2775 / 2775 Balance 2012 2670 / 2670 1162 / 1162 516 / 516 - Physical Exam Oriented: Unable to test Eyes: Normal Ear: Normal Nose: Normal Throat: Normal Respiratory: Generalized, Diminished Cardiovascular: Normal : Normal Auscultation: Bowel Sounds: Normal Palpation: Normal Tenderness: Normal Skin: Normal Musculoskeletal: Back:Thoracic, Back:Lumbar, Motor Deficit Psychiatric: Anxiety Affect: Anxious Speech Pattern: Clear, Inappropriate - Laboratory and Diagnostics Result Diagrams: 02/02/21 08:20 02/02/21 08:20 Labs: 01/28/21 11:00 Blood Blood Culture - Final 01/28/21 10:49 Blood Blood Culture - Final Laboratory WBC 18.6 X10^3/uL (3.6-10.0) H 02/02/21 08:20 RBC 4.20 X10^6/uL (4.7-6.0) L 02/02/21 08:20 Hgb 12.2 g/dL (13.5-18.0) L 02/02/21 08:20 Hct 37.6 % (42.0-54.0) L 02/02/21 08:20 MCV 89.6 fL (80.0-100.0) 02/02/21 08:20 MCH 29.2 pg (27.0-34.0) 02/02/21 08:20 MCHC 32.5 g/dL (33.0-35.0) L 02/02/21 08:20 RDW 14.8 % (11.6-16.5) 02/02/21 08:20 Plt Count 270 X10^3/uL (150.0-450.0) 02/02/21 08:20 Plt Count Comment Adequate (ADEQUATE) 02/02/21 08:20 MPV 8.3 fL (7.4-11.0) 02/02/21 08:20 Neut % (Auto) 95.4 % (42.0-75.0) H 02/02/21 08:20 Lymph % (Auto) 1.1 % (21.0-51.0) L 02/02/21 08:20 [place] % (Auto) 3.4 % (0.0-13.0) 02/02/21 08:20 Eos % (Auto) 0.0 % (0.9-2.9) L 02/02/21 08:20 Baso % (Auto) 0.1 % (0.2-1.0) L 02/02/21 08:20 Neut # (Auto) 17.8 x10^3/uL (2.2-4.8) H 02/02/21 08:20 Lymph # (Auto) 0.2 X10^3/uL (1.3-2.9) L 02/02/21 08:20 [place] # (Auto) 0.6 x10^3/uL (0.3-0.8) 02/02/21 08:20 Eos # (Auto) 0.0 x10^3/uL (0.0-0.2) 02/02/21 08:20 Baso # (Auto) 0.0 X10^3/uL (0.0-0.1) 02/02/21 08:20 Absolute Nucleated RBC 0.0 /100WBC 02/02/21 08:20 Total Counted 100 02/02/21 08:20 Neutrophils % (Manual) 99 % (39-76) H 02/02/21 08:20 Band Neutrophils % 3 % (0-10) 01/30/21 02:50 Lymphocytes % (Manual) Not Reportable 02/02/21 08:20 Monocytes % (Manual) 1 % (4-9) L 02/02/21 08:20 Nucleated RBCs 1 02/02/21 08:20 Plt Morphology Comment Normal (NORMAL) 02/02/21 08:20 RBC Morphology Abnormal (NORMAL) 02/02/21 08:20 Tear Drop Cells Slight 02/02/21 08:20 Daily Cells Slight A 02/02/21 08:20 PT 16.1 SECONDS (11.8-14.3) 01/28/21 04:40 INR Target Range - 01/28/21 04:40 INR 1.35 (0.8-1.3) H 01/28/21 04:40 APTT 119.9 SECONDS (22.9-36.5) H 02/02/21 08:20 PTT Comment - 02/02/21 08:20 D-Dimer > 20.00 ug/ml (0.0-0.57) H* 01/27/21 19:20 Sample Site Rrad 02/02/21 05:03 ABG pH 7.570 (7.35-7.45) H* 02/02/21 05:03 ABG pCO2 32.0 mmHg (35.0-45.0) L 02/02/21 05:03 ABG pO2 47.0 mmHg (80.0-100.0) L* 02/02/21 05:03 ABG HCO3 29.3 mmol/L (22-26) H 02/02/21 05:03 ABG O2 Saturation 89.0 % (90-100) L 02/02/21 05:03 ABG Base Excess 7.3 mmol/L (-2.0-2.0) H 02/02/21 05:03 Ted Test Pos 02/02/21 05:03 A-a Gradient 483.0 mmHg 02/02/21 05:03 FiO2 80.0 02/02/21 05:03 Blood Gas Comments Pt [place] well sa 02/02/21 05:03 Sodium 147 mmol/L (136-145) H 02/02/21 08:20 Corrected Sodium 150 mmol/L (136-145) H 02/02/21 08:20 Potassium 3.5 mmol/L (3.5-5.1) 02/02/21 08:20 Chloride 109 mmol/L (98-107) H 02/02/21 08:20 Carbon Dioxide 27.8 mmol/L (21-32) 02/02/21 08:20 BUN 33 mg/dL (7-18) H 02/02/21 08:20 Creatinine 1.18 mg/dL (0.70-1.30) 02/02/21 08:20 Est GFR (MDRD) Af Amer > 60 (>60) 02/02/21 08:20 Est GFR (MDRD) Non-Af > 60 (>60) 02/02/21 08:20 Glucose 209 mg/dL (65-99) H 02/02/21 08:20 Lactic Acid 1.9 mmol/L (0.4-2.0) 01/28/21 10:49 Calcium 8.2 mg/dL (8.5-10.1) L 02/02/21 08:20 Corrected Calcium 9.6 mg/dL (8.5-10.1) 02/02/21 08:20 Magnesium 2.1 mg/dL (1.7-2.9) 01/29/21 21:44 Total Bilirubin 1.10 mg/dL (0.2-1.0) H 02/02/21 08:20 AST 25 Units/L (15-37) 02/02/21 08:20 ALT 17 Units/L (12-78) 02/02/21 08:20 Alkaline Phosphatase 163 Units/L (46-116) H 02/02/21 08:20 Creatine Kinase 47 Units/L (39-308) 01/27/21 19:20 CK-MB (CK-2) 2.0 ng/mL (0-4.0) 01/27/21 19:20 CK/CKMB % Calc 4.3 % (<4) 01/27/21 19:20 Troponin I 0.04 ng/mL (0-1.5) 01/27/21 19:20 C-Reactive Protein 68.10 mg/L (0-3.0) H 02/02/21 08:20 B-Natriuretic Peptide 275 pg/mL (0-79) H 01/31/21 05:38 Total Protein 6.2 g/dL (6.4-8.2) L 02/02/21 08:20 Albumin 2.3 g/dL (3.4-5.0) L 02/02/21 08:20 Globulin 3.9 g/dL (2.5-4.5) 02/02/21 08:20 Albumin/Globulin Ratio 0.6 Ratio (1.1-2.1) L 02/02/21 08:20 Prealbumin 13.5 mg/dL (18-35.7) L 02/02/21 08:20 Specimen Type Catherized urine 01/28/21 19:58 Urine Color Dark yellow (YELLOW) 01/28/21 19:58 Urine Appearance Clear (CLEAR) 01/28/21 19:58 Urine pH 5.0 (5.0 - 8.0) 01/28/21 19:58 Ur Specific [place] 1.015 (1.000-1.030) 01/28/21 19:58 Urine Protein 2+ (NEGATIVE) 01/28/21 19:58 Urine Glucose (UA) Negative (NEGATIVE) 01/28/21 19:58 Urine Ketones Negative (NEGATIVE) 01/28/21 19:58 Urine Occult Blood Negative (NEGATIVE) 01/28/21 19:58 Urine Nitrite Negative (NEGATIVE) 01/28/21 19:58 Urine Bilirubin Negative (NEGATIVE) 01/28/21 19:58 Urine Urobilinogen 2+ (NORMAL) 01/28/21 19:58 Ur Leukocyte Esterase Negative (NEGATIVE) 01/28/21 19:58 Urine RBC 0-2 /HPF (0-3) 01/28/21 19:58 Urine WBC 0-2 /HPF (0-5) 01/28/21 19:58 Ur Squamous Epith Cells Rare /HPF (NEGATIVE) 01/28/21 19:58 Ur Transition Epith Cell Few /HPF (NEGATIVE) 01/28/21 19:58 Urine Bacteria 1+ /HPF (NEGATIVE) 01/28/21 19:58 Hyaline Casts Few /LPF (NEGATIVE) 01/28/21 19:58 Ur Culture Indicated? No/not indicated 01/28/21 19:58 - Plan (1) Pulmonary embolism Status: Acute Qualifiers: Pulmonary embolism type: unspecified Chronicity: acute Acute cor pulmonale presence: unspecified Qualified Code(s): I26.99 - Other pulmonary embolism without acute cor pulmonale Plan: SUPPLEMENTAL OXYGEN, NORMAL SALINE AT 75 ML/HR, REMDESIVIR 100MG IV DAILY, AND SOLU-MEDROL 125MG IV Q6H, ZOSYN 3.375G IV TID, VALIUM 1MG IV Q4H PRN, GEODON 10MG BID PRN, ALBUTEROL NEBS TID, PULMICORT NEBS BID, HEPARIN IV DRIP, PROTONIX 40MG IV BID, PERCOCET 5/325 1.5 TAB PO Q6H PRN, ROBITUSSIN DM 10ML PO Q4H PRN, SYNTHROID 75MCG PO DAILY, ZESTRIL 5MG PO DAILY, THE POTASSIUM AND MAGNESIUM PROTOCOL. (2) Pneumonia due to COVID-19 virus Status: Acute (3) COVID-19 virus infection Status: Acute (4) Hypoxia Status: Acute
[2021-02-02] MEDS: GEODON INJ IM SCH ×4 (11:07→22:05)
--- NOTE | 2021-02-02 12:38 | DR.PROGNOT ---
Hospital Progress Notes - Progress Note for Day of: Progress Note Date: 02/02/21 - Chief Complaint Chief Complaint: evaluation for spontanous small pneumothorax . Covid pneumonia . - Past Medical Family Social History Past Med/Fam/Surg Hx: No changes since H&P Allergies: Allergies lorazepam [From Ativan] Allergy (Verified 01/27/21 19:36) morphine Adverse Reaction (Verified 01/15/20 12:20) nifedipine Adverse Reaction (Verified 01/15/20 12:20) MUSCLE RELAXERS Adverse Reaction (Uncoded 01/15/20 12:20) - Review Of Systems ROS: No change since H&P - Vital Signs Vital Signs: Temperature 98 F Pulse Rate [Left] 71 Pulse Rate 85 Respiratory Rate 46 Blood Pressure [Left Arm] 155/79 Blood Pressure 145/70 O2 Sat by Pulse Oximetry 91 - Physical Exam Oriented: Unable to test Eyes: Normal Ear: Normal Nose: Normal Throat: Normal Respiratory: Generalized, Diminished Cardiovascular: Normal : Normal GI:Auscultation: Normal GI:Palpation: Normal GI: Tenderness: Normal Skin: Normal Musculoskeletal: Back:Thoracic, Back:Lumbar, Motor Deficit Psychiatric: Anxiety Affect: Anxious Speech Pattern: Clear, Inappropriate - Laboratory and Diagnostics Result Diagrams: 02/02/21 08:20 02/02/21 08:20 Labs: 01/28/21 11:00 Blood Blood Culture - Final 01/28/21 10:49 Blood Blood Culture - Final Laboratory WBC 18.6 X10^3/uL (3.6-10.0) H 02/02/21 08:20 RBC 4.20 X10^6/uL (4.7-6.0) L 02/02/21 08:20 Hgb 12.2 g/dL (13.5-18.0) L 02/02/21 08:20 Hct 37.6 % (42.0-54.0) L 02/02/21 08:20 MCV 89.6 fL (80.0-100.0) 02/02/21 08:20 MCH 29.2 pg (27.0-34.0) 02/02/21 08:20 MCHC 32.5 g/dL (33.0-35.0) L 02/02/21 08:20 RDW 14.8 % (11.6-16.5) 02/02/21 08:20 Plt Count 270 X10^3/uL (150.0-450.0) 02/02/21 08:20 Plt Count Comment Adequate (ADEQUATE) 02/02/21 08:20 MPV 8.3 fL (7.4-11.0) 02/02/21 08:20 Neut % (Auto) 95.4 % (42.0-75.0) H 02/02/21 08:20 Lymph % (Auto) 1.1 % (21.0-51.0) L 02/02/21 08:20 [place] % (Auto) 3.4 % (0.0-13.0) 02/02/21 08:20 Eos % (Auto) 0.0 % (0.9-2.9) L 02/02/21 08:20 Baso % (Auto) 0.1 % (0.2-1.0) L 02/02/21 08:20 Neut # (Auto) 17.8 x10^3/uL (2.2-4.8) H 02/02/21 08:20 Lymph # (Auto) 0.2 X10^3/uL (1.3-2.9) L 02/02/21 08:20 [place] # (Auto) 0.6 x10^3/uL (0.3-0.8) 02/02/21 08:20 Eos # (Auto) 0.0 x10^3/uL (0.0-0.2) 02/02/21 08:20 Baso # (Auto) 0.0 X10^3/uL (0.0-0.1) 02/02/21 08:20 Absolute Nucleated RBC 0.0 /100WBC 02/02/21 08:20 Total Counted 100 02/02/21 08:20 Neutrophils % (Manual) 99 % (39-76) H 02/02/21 08:20 Band Neutrophils % 3 % (0-10) 01/30/21 02:50 Lymphocytes % (Manual) Not Reportable 02/02/21 08:20 Monocytes % (Manual) 1 % (4-9) L 02/02/21 08:20 Nucleated RBCs 1 02/02/21 08:20 Plt Morphology Comment Normal (NORMAL) 02/02/21 08:20 RBC Morphology Abnormal (NORMAL) 02/02/21 08:20 Tear Drop Cells Slight 02/02/21 08:20 Daily Cells Slight A 02/02/21 08:20 PT 16.1 SECONDS (11.8-14.3) 01/28/21 04:40 INR Target Range - 01/28/21 04:40 INR 1.35 (0.8-1.3) H 01/28/21 04:40 APTT 119.9 SECONDS (22.9-36.5) H 02/02/21 08:20 PTT Comment - 02/02/21 08:20 D-Dimer > 20.00 ug/ml (0.0-0.57) H* 01/27/21 19:20 Sample Site Rrad 02/02/21 05:03 ABG pH 7.570 (7.35-7.45) H* 02/02/21 05:03 ABG pCO2 32.0 mmHg (35.0-45.0) L 02/02/21 05:03 ABG pO2 47.0 mmHg (80.0-100.0) L* 02/02/21 05:03 ABG HCO3 29.3 mmol/L (22-26) H 02/02/21 05:03 ABG O2 Saturation 89.0 % (90-100) L 02/02/21 05:03 ABG Base Excess 7.3 mmol/L (-2.0-2.0) H 02/02/21 05:03 Ted Test Pos 02/02/21 05:03 A-a Gradient 483.0 mmHg 02/02/21 05:03 FiO2 80.0 02/02/21 05:03 Blood Gas Comments Pt [place] sa 02/02/21 05:03 Sodium 147 mmol/L (136-145) H 02/02/21 08:20 Corrected Sodium 150 mmol/L (136-145) H 02/02/21 08:20 Potassium 3.5 mmol/L (3.5-5.1) 02/02/21 08:20 Chloride 109 mmol/L (98-107) H 02/02/21 08:20 Carbon Dioxide 27.8 mmol/L (21-32) 02/02/21 08:20 BUN 33 mg/dL (7-18) H 02/02/21 08:20 Creatinine 1.18 mg/dL (0.70-1.30) 02/02/21 08:20 Est GFR (MDRD) Af Amer > 60 (>60) 02/02/21 08:20 Est GFR (MDRD) Non-Af > 60 (>60) 02/02/21 08:20 Glucose 209 mg/dL (65-99) H 02/02/21 08:20 Lactic Acid 1.9 mmol/L (0.4-2.0) 01/28/21 10:49 Calcium 8.2 mg/dL (8.5-10.1) L 02/02/21 08:20 Corrected Calcium 9.6 mg/dL (8.5-10.1) 02/02/21 08:20 Magnesium 2.1 mg/dL (1.7-2.9) 01/29/21 21:44 Total Bilirubin 1.10 mg/dL (0.2-1.0) H 02/02/21 08:20 AST 25 Units/L (15-37) 02/02/21 08:20 ALT 17 Units/L (12-78) 02/02/21 08:20 Alkaline Phosphatase 163 Units/L (46-116) H 02/02/21 08:20 Creatine Kinase 47 Units/L (39-308) 01/27/21 19:20 CK-MB (CK-2) 2.0 ng/mL (0-4.0) 01/27/21 19:20 CK/CKMB % Calc 4.3 % (<4) 01/27/21 19:20 Troponin I 0.04 ng/mL (0-1.5) 01/27/21 19:20 C-Reactive Protein 68.10 mg/L (0-3.0) H 02/02/21 08:20 B-Natriuretic Peptide 275 pg/mL (0-79) H 01/31/21 05:38 Total Protein 6.2 g/dL (6.4-8.2) L 02/02/21 08:20 Albumin 2.3 g/dL (3.4-5.0) L 02/02/21 08:20 Globulin 3.9 g/dL (2.5-4.5) 02/02/21 08:20 Albumin/Globulin Ratio 0.6 Ratio (1.1-2.1) L 02/02/21 08:20 Prealbumin 13.5 mg/dL (18-35.7) L 02/02/21 08:20 Specimen Type Catherized urine 01/28/21 19:58 Urine Color Dark yellow (YELLOW) 01/28/21 19:58 Urine Appearance Clear (CLEAR) 01/28/21 19:58 Urine pH 5.0 (5.0 - 8.0) 01/28/21 19:58 Ur Specific [place] 1.015 (1.000-1.030) 01/28/21 19:58 Urine Protein 2+ (NEGATIVE) 01/28/21 19:58 Urine Glucose (UA) Negative (NEGATIVE) 01/28/21 19:58 Urine Ketones Negative (NEGATIVE) 01/28/21 19:58 Urine Occult Blood Negative (NEGATIVE) 01/28/21 19:58 Urine Nitrite Negative (NEGATIVE) 01/28/21 19:58 Urine Bilirubin Negative (NEGATIVE) 01/28/21 19:58 Urine Urobilinogen 2+ (NORMAL) 01/28/21 19:58 Ur Leukocyte Esterase Negative (NEGATIVE) 01/28/21 19:58 Urine RBC 0-2 /HPF (0-3) 01/28/21 19:58 Urine WBC 0-2 /HPF (0-5) 01/28/21 19:58 Ur Squamous Epith Cells Rare /HPF (NEGATIVE) 01/28/21 19:58 Ur Transition Epith Cell Few /HPF (NEGATIVE) 01/28/21 19:58 Urine Bacteria 1+ /HPF (NEGATIVE) 01/28/21 19:58 Hyaline Casts Few /LPF (NEGATIVE) 01/28/21 19:58 Ur Culture Indicated? No/not indicated 01/28/21 19:58 - Assessment and Plan 1: small pneumothorax. not clinically significant .. Covid pneumonia and other medical problems as above .. to observe and repeat chest Xray in am . - Problem Patient Problems: Patient Problems GERD (gastroesophageal reflux disease) (Chronic) K21.9 Essential hypertension (Chronic) I10 Pulmonary embolism (Acute) I26.99 Hypoxia (Acute) R09.02 COVID-19 virus infection (Acute) U07.1 Pneumonia due to COVID-19 virus (Acute) U07.1, J12.82
[2021-02-02] MEDS: HEPARIN SODIUM IN D5W 25,000 UNITS/500 ML BAG IV PRN ×2 (14:15→17:32)
[2021-02-02] MEDS ORDERED: HumuLIN R SUBCUT PRN (15:15)
[2021-02-02] MEDS ORDERED: DEXTROSE 10% 1,000 ML IV PRN (15:15)
[2021-02-02 15:47] LABS: MAGNESIUM 2.7 mg/dL (1.7-2.9); PHOSPHORUS 3.4 mg/dL (2.6-4.7)
[2021-02-02 18:37] VITALS: BP 205/87
[2021-02-02] MEDS: COLACE CAP 100 MG PO SCH (20:42)
[2021-02-02] MEDS ORDERED: CHECK PATCH XX SCH (21:00)
== END 2021-02-02 23:40 | disposition short-term general hospital (02) | DRG 177 ==
LOC: ER 18:55 → ICU 22:43
PROVIDERS: ADMIT Internal Medicine; ATTEND Internal Medicine
DX: Z85.038 Personal history of other malignant neoplasm of large intestine; Z78.1 Physical restraint status; R79.82 Elevated C-reactive protein (CRP); I10 Essential (primary) hypertension; I26.99 Other pulmonary embolism without acute cor pulmonale; U07.1 COVID-19; E03.8 Other specified hypothyroidism; J81.0 Acute pulmonary edema; J12.82 Pneumonia due to coronavirus disease 2019; R09.02 Hypoxemia; K21.9 Gastro-esophageal reflux disease without esophagitis